=== PATIENT | male | born 1950 | race African-American/Black ===

== ENCOUNTER 2019-04-17 17:18 | Emergency (ER) | payer OTHER ==
[2019-04-17 17:34] LABS: Glucose,Whole Blood 124 mg/dL (75-99)
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
[2019-04-17 18:27] LABS: HCT 41.6 % (39.0-53.0); HGB 13.9 gm/dL (13.0-17.5); MCH 32.5 pg (25.0-35.0); MCHC 33.5 g/dL (31.0-37.0); MCV 97.2 fL (80.0-100.0); Mean Platelet Volume 9.3; Platelet Count 149 k/uL (150-450); RBC 4.29 m/uL (4.30-5.90); RDW 12.1 % (11.5-15.5); WBC 5.9 k/uL (3.8-10.6)
[2019-04-17 18:35] LABS: Eosinophils # (M) 0.06 k/uL (0-0.7); Lymphocytes # (M) 2.12 k/uL (1.0-4.8); Monocytes # (M) 0.41 k/uL (0-1.0); Neutrophils % (M) 56 %; Nucleated Red Blood Cells 0 /100 WBC (0-0); Total Cells Counted 100
[2019-04-17] MEDS ORDERED: ACETAMINOPHEN TAB 500 MG TAB PO STA (18:36)
[2019-04-17 18:39] LABS: Albumin 5.2 g/dL (3.5-5.0); Calcium 9.8 mg/dL (8.4-10.2); Total Bilirubin 1.6 mg/dL (0.2-1.3); Total Protein 8.6 g/dL (6.3-8.2)
[2019-04-17 18:40] LABS: Potassium 5.6 mmol/L (3.5-5.1)
[2019-04-17 18:56] LABS: Appearance,Urine Clear (Clear); Bilirubin,Urine Negative (Negative); Blood,Urine Negative (Negative); Color,Urine Light Yellow; Glucose,Urine (UA) Negative (Negative); Ketones,Urine Negative (Negative); Leukocyte Esterase,Urine Negative (Negative); Nitrite,Urine Negative (Negative); PH, Urine 7.5 (5.0-8.0); Protein,Urine Negative (Negative); Specific Gravity,Urine 1.011 (1.001-1.035); Urobilinogen,Urine <2.0 mg/dL (<2.0)
--- NOTE | 2019-04-17 18:56 | XR ---
EXAMINATION TYPE: XR knee complete LT DATE OF EXAM: 04/17/2019 COMPARISON: NONE HISTORY: Knee injury. Pain TECHNIQUE: 3 views FINDINGS: I see no fracture nor dislocation. Joint spaces are normal. There is no sign of knee joint effusion. IMPRESSION: Negative left knee exam. No fracture.
[2019-04-17 19:15] LABS: Amphetamine Screen,Urine Not Detected (NotDetected); Benzodiazepines Screen,Urine Not Detected (NotDetected); Cocaine Screen,Urine Not Detected (NotDetected); Methadone Screen, Urine Not Detected (NotDetected); Opiate Screen,Urine Not Detected (NotDetected); Phencyclidine Screen,Urine Not Detected (NotDetected); Tricyclic Antidepressant,Urine Not Detected (NotDetected); Urn Cannabinoid Scrn Not Detected (NotDetected)
[2019-04-17 19:16] LABS: Barbiturate Screen,Urine Not Detected (NotDetected); Oxycodone Screen, Urine Not Detected (NotDetected)
[2019-04-17 19:45] VITALS: BP 169/97; PULSE 57; RESP 16; TEMP 98.8
== END 2019-04-17 19:30 | disposition home or self-care (01) ==
LOC: EC 17:18
DX: S01.81XA Laceration without foreign body of other part of head, initial encounter (principal); S80.212A Abrasion, left knee, initial encounter; M54.5 Low back pain; R00.1 Bradycardia, unspecified; E87.5 Hyperkalemia; V33.5XXA Driver of three-wheeled motor vehicle injured in collision with car, pick-up truck or van in traffic accident, initial encounter; Y93.89 Activity, other specified; Y92.410 Unspecified street and highway as the place of occurrence of the external cause
CPT/HCPCS: 36415; 70450; 71045; 72125; 72131; 72170; 80053; 80306; 81003; 85025; 93005; 99285

== ENCOUNTER 2021-08-09 10:41 | Observation (INO) | payer OTHER, MEDICARE ==
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
[2021-08-09 12:28] LABS: Basophils # (A) 0.1 k/uL (0-0.2); Basophils % (A) 1 %; Eosinophils # (A) 0.2 k/uL (0-0.7); Eosinophils % (A) 3 %; HCT 44.7 % (39.0-53.0); HGB 13.9 gm/dL (13.0-17.5); Lymphocytes # (A) 1.6 k/uL (1.0-4.8); Lymphocytes % (A) 26 %; MCH 31.5 pg (25.0-35.0); MCV 101.6 fL (80.0-100.0); Monocytes # (A) 0.4 k/uL (0-1.0); Monocytes % (A) 6 %; Neutrophils # (A) 3.8 k/uL (1.3-7.7); Neutrophils % (A) 60 %; Platelet Count 231 k/uL (150-450); RDW 12.2 % (11.5-15.5); WBC 6.3 k/uL (3.8-10.6)
--- NOTE | 2021-08-09 12:42 | XR ---
EXAMINATION TYPE: XR chest 2V DATE OF EXAM: 08/09/2021 COMPARISON: X-ray dated 04/17/2019 HISTORY: Chest pain TECHNIQUE: Frontal and lateral views of the chest are obtained. FINDINGS: Slightly congested pulmonary vasculature with prominent interstitial lung markings, likely related to incomplete lung expansion. Grossly unremarkable lungs otherwise. No sizable pleural effusion or definite pneumothorax. No cardio megaly. Degenerative changes of thoracic spine and acromioclavicular joints. IMPRESSION: As above.
[2021-08-09 12:44] LABS: Albumin 4.5 g/dL (3.5-5.0); Calcium 9.7 mg/dL (8.4-10.2); Potassium 3.3 mmol/L (3.5-5.1); Total Bilirubin 0.7 mg/dL (0.2-1.3); Total Protein 7.6 g/dL (6.3-8.2)
[2021-08-09 12:50] LABS: Partial Thromboplastin Time 24.8 sec (22.0-30.0); Prothrombin Time 10.6 sec (9.0-12.0)
[2021-08-09] MEDS ORDERED: POTASSIUM CHLORIDE ER 20 MEQ TAB.ER PO STA (14:16)
[2021-08-09] MEDS ORDERED: SODIUM CHLORIDE 0.9% 1,000 ML IV SCH (15:00)
[2021-08-09] MEDS ORDERED: Acetaminophen-Codeine 300-30mg TAB PO PRN (15:22)
[2021-08-09] MEDS ORDERED: NON FORMULARY DRUG (Naloxone Hcl [Narcan] 4 MG Each) NASAL PRN (15:22)
[2021-08-09] MEDS ORDERED: GABAPENTIN 300 MG CAP PO SCH (16:00)
[2021-08-09] MEDS ORDERED: methocarbamoL 750 MG TAB PO SCH (16:00)
[2021-08-09] MEDS ORDERED: NALOXONE 0.4 MG/ML 1 ML VIAL IV PRN (16:09)
--- NOTE | 2021-08-09 16:12 | P.HPIM ---
History of Present Illness H&P Date: 08/09/21 Chief Complaint: Bradycardia History of present illness: Patient is a 71-year-old male with past medical history significant for chronic pain syndrome, hypertension and bipolar disorder who presents from his primary care office due to abnormal EKG which showed sinus bradycardia. Patient is awake alert oriented 3 he sleepy but not confused. Patient states he was at Dr. Hirsch's office at [facility] for a routine checkup. Patient states he feels w ell. He denies any symptoms including headache, shortness of breath, cough, chest pain, lightheadedness, dizziness, abdominal pain, nausea, vomiting, and diarrhea. Patient denies use of beta blockers, calcium channel blockers, and other rate controlling medication. Patient denies cardiac history but according to his medication list has history of hypertension and hyperlipidemia. Patient on multiple medication for pain control including Neurontin, muscle relaxant Robaxin, ibuprofen and Tylenol 3. Patient denies any history of coronary disease or stroke Review of systems: All 14 review of systems evaluated and all negative except for above. Physical examination: General: non toxic, no distress, appears at stated age, sleepy Derm: warm, dry Head: atraumatic, normocephalic, symmetric Eyes: EOMI, no lid lag, anicteric sclera Mouth: no lip lesion, mucus membranes moist Cardiovascular: S1S2 reg, no murmur, positive posterior tibial pulse bilateral, Lungs: CTA bilateral, no rhonchi, no rales , no accessory muscle use Abdominal: soft, nontender to palpation, no guarding, no appreciable organomegaly Ext: no gross muscle atrophy, no edema, no contractures Neuro: CN II-XI grossly intact, no focal neuro deficits Psych: Alert, oriented, appropriate affect Assessment and plan: #Sinus bradycardia -Patient is hemodynamically stable. Admit to telemetry -Unclear etiology, could be secondary to sciatic versus pain medications -Check TSH -Check 2-D echo and consult cardiology #Chronic pain syndrome -Patient sleepy will hold Tylenol No. 3 muscle relaxant and decreased Neurontin 200 mg twice daily #Bipolar disorder -Check lithium level -Resume home medications -Consult psychiatry to manage psych medication as possible cause of his increas ed sleepiness versus bradycardia #BPH -Resume Flomax #Hypertension -Resume home medications #DVT prophylaxis with Lovenox Past Medical History Past Medical History: No Reported History History of Any Multi-Drug Resistant Organisms: None Reported Past Surgical History: No Surgical Hx Reported Past Psychological History: No Psychological Hx Reported Smoking Status: Current every day smoker Past Alcohol Use History: None Reported Past Drug Use History: None Reported Medications and Allergies Home Medications Medication Instructions Recorded Confirmed Type ARIPiprazole [Abilify] 10 mg PO DAILY 08/09/21 08/09/21 History Acetaminophen-Codeine 300-30mg 1 tab PO TID PRN 08/09/21 08/09/21 History [Tylenol w/codeine #3] Aspirin EC [Ecotrin Low Dose] 81 mg PO DAILY 08/09/21 08/09/21 History Atorvastatin [Lipitor] 10 mg PO HS 08/09/21 08/09/21 History Benztropine Mesylate [Cogentin] 1 mg PO HS 08/09/21 08/09/21 History Cetirizine HCl [Zyrtec] 10 mg PO DAILY 08/09/21 08/09/21 History Cholecalciferol [Vitamin D3 (25 50 mcg PO DAILY 08/09/21 08/09/21 History Mcg = 1000 Iu)] Divalproex ER [Depakote ER] 500 mg PO HS 08/09/21 08/09/21 History Fluticasone Nasal [place] [Flonase 1 spray EA NOSTRIL BID 08/09/21 08/09/21 History Nasal [place]] Gabapentin [Neurontin] 300 mg PO TID 08/09/21 08/09/21 History Ibuprofen [Motrin] 800 mg PO TID PRN 08/09/21 08/09/21 History [place] Carbonate 300 mg PO DAILY 08/09/21 08/09/21 History Multivitamins, Thera [Multivitamin 1 tab PO DAILY 08/09/21 08/09/21 History (formulary)] Naloxone HCl [Narcan] 4 mg NASAL DIRECTED PRN 08/09/21 08/09/21 History Omeprazole [PriLOSEC] 20 mg PO DAILY 08/09/21 08/09/21 History Tamsulosin HCl [Flomax] 0.8 mg PO DAILY 08/09/21 08/09/21 History Triamterene-Hctz 37.5-25Mg 1 tab PO DAILY 08/09/21 08/09/21 History [Maxzide 37.5-25] hydrALAZINE HCL [Apresoline] 50 mg PO TID 08/09/21 08/09/21 History methocarbamoL [Methocarbamol] 750 mg PO TID 08/09/21 08/09/21 History traZODone HCL [Desyrel] 50 mg PO HS 08/09/21 08/09/21 History Allergies Allergy/AdvReac Type Severity Reaction Status Date / Time chocolate flavor Allergy Unknown Verified 08/09/21 13:28 bupropion [From Wellbutrin] AdvReac Seizure Verified 08/09/21 13:28 Physical Exam Vitals: Vital Signs Temp Pulse Resp BP Pulse Ox 08/09/21 14:32 43 L 16 170/81 97 08/09/21 14:12 37 L 18 176/98 95 08/09/21 12:57 40 L 16 162/87 96 08/09/21 10:48 97.4 F L 42 L 16 157/84 94 L Intake and Output 08/09/21 08/09/21 08/09/21 06:59 14:59 22:59 Other: Weight 79.379 kg Results CBC & Chem 7: 08/09/21 12:14 08/09/21 12:14 Labs: Abnormal Lab Results - Last 24 Hours (Table) 08/09/21 08/09/21 Range/Units 12:14 12:14 MCV 101.6 H (80.0-100.0) fL Potassium 3.3 L (3.5-5.1) mmol/L Carbon Dioxide 32 H (22-30) mmol/L
--- NOTE | 2021-08-09 16:51 | CT ---
EXAMINATION TYPE: CT brain wo con DATE OF EXAM: 08/09/2021 HISTORY: Lethargy CT DLP: 1232.4 mGycm. Automated Exposure Control for Dose Reduction was Utilized. TECHNIQUE: CT scan of the head is performed without contrast. COMPARISON: CT brain April 17, 2019. FINDINGS: There is no acute intracranial hemorrhage or midline shift identified. There is mild diff use ventricular and sulcal prominence consistent with diffuse age-related cerebral atrophy. Olson-whit e matter differentiation is maintained. Small mucous retention cyst or polyp in the inferior left max illary sinus. Mild mucosal thickening in inferior right maxillary sinus. Small degree of cerumen in t he deep left external auditory canal current study. IMPRESSION: No acute intracranial hemorrhage or midline shift. No significant change from prior.
[2021-08-09] MEDS: hydrALAZINE HCL 50 MG TAB PO SCH ×2 (17:14→20:51)
[2021-08-09] MEDS: GABAPENTIN 100 MG CAP PO SCH (20:51)
[2021-08-09] MEDS: FLUTICASONE 50MCG/SPRAY NASAL 16GM EA NOSTRIL SCH (20:51)
[2021-08-09] MEDS ORDERED: ATORVASTATIN 10 MG TAB PO SCH (21:00)
[2021-08-09] MEDS ORDERED: BENZTROPINE MESYLATE 1 MG TAB PO SCH (21:00)
[2021-08-09] MEDS ORDERED: traZODone HCL 50 MG TAB PO SCH (21:00)
[2021-08-09] MEDS ORDERED: DIVALPROEX ER 500 MG TAB.ER.24H PO SCH (21:00)
[2021-08-10] MEDS ORDERED: PANTOPRAZOLE 40 MG TABLET PO SCH (07:30)
[2021-08-10] MEDS ORDERED: TRIAMTERENE-HCTZ 37.5-25MG 1 EACH TAB PO SCH (09:00)
[2021-08-10] MEDS ORDERED: CHOLECALCIFEROL 25 MCG (1000 IU) TABLET PO SCH (09:00)
[2021-08-10] MEDS ORDERED: LORATADINE 10 MG TAB PO SCH (09:00)
[2021-08-10] MEDS ORDERED: LITHIUM CARBONATE 300 MG CAP PO SCH (09:00)
[2021-08-10] MEDS ORDERED: ENOXAPARIN 40 MG/0.4 ML SYRINGE SQ SCH (09:00)
[2021-08-10] MEDS ORDERED: ARIPiprazole 10 MG TAB PO SCH (09:00)
[2021-08-10] MEDS ORDERED: TAMSULOSIN 0.4 MG CAP.ER.24H PO SCH (09:00)
[2021-08-10] MEDS ORDERED: MULTIVITAMINS, THERA 1 EACH TAB PO SCH (09:00)
[2021-08-10] MEDS ORDERED: ASPIRIN 81 MG PO SCH (09:00)
[2021-08-10] MEDS: hydrALAZINE HCL 50 MG TAB PO SCH (09:13)
[2021-08-10] MEDS: FLUTICASONE 50MCG/SPRAY NASAL 16GM EA NOSTRIL SCH (09:14)
[2021-08-10 09:15] LABS: Albumin 4.1 g/dL (3.8-4.9); Albumin/Globulin Ratio 1.78 (1.60-3.17); Anion Gap 11.9 mmol/L (10.00-18.00); BUN/Creat Ratio 16.5 Ratio (12.00-20.00); Blood Urea Nitrogen 16.5 mg/dL (9.0-27.0); Calcium 9.3 mg/dL (8.7-10.3); Carbon Dioxide 24.1 mmol/L (20.0-27.5); Globulin 2.3 g/dL (1.6-3.3); Non-African American GFR(CKD) 75.9 (60.0-200.0); Potassium 3.5 mmol/L (3.5-5.5); Total Bilirubin 0.4 mg/dL (0.30-1.20); Total Protein 6.4 g/dL (6.2-8.2)
[2021-08-10] MEDS: GABAPENTIN 100 MG CAP PO SCH (09:23)
[2021-08-10 12:26] LABS: Basophils # (A) 0.05 X 10*3/uL (0.00-0.10); Basophils % (A) 0.7 %; Eosinophils # (A) 0.19 X 10*3/uL (0.04-0.35); Eosinophils % (A) 2.7 %; Immature Grans, Automated 0.4 %; Lymphocytes # (A) 1.22 X 10*3/uL (0.90-5.00); Lymphocytes % (A) 17.6 %; MCH 31.7 pg (27.0-32.0); MCHC 32.6 g/dL (32.0-37.0); MCV 97.5 fL (80.0-97.0); Mean Platelet Volume 11.1 fL (9.5-12.2); Monocytes # (A) 0.57 X 10*3/uL (0.20-1.00); Monocytes % (A) 8.2 %; NRBC Per 100 WBC 0 /100 WBCS (0.0-0.0); Neutrophils # (A) 4.88 X 10*3/uL (1.80-7.70); Neutrophils % (A) 70.4 %; Platelet Count 216 X 10*3/uL (140-440); RBC 4.41 X 10*6/uL (4.40-5.60); RDW 12.9 % (11.5-14.5); WBC 6.94 X 10*3/uL (4.50-10.00)
--- NOTE | 2021-08-10 12:36 | CA ---
Transthoracic Echo Report Name: Hu Slater Age: 71 Gender: M : 1950 Exam Date: 08/10/2021 08:55 Exam Location: [facility] Ht (in): 66 Wt (lb): 175 Ordering Physician: Zeeshan Brar MD Attending/Referring Phys: [id number], Zonia R Developer Nicolle Haq, RD Procedure CPT: Indications: Bradycardia Cardiac Hx: HTN Technical Quality: Good Contrast 1: Total Dose (mL): Contrast 2: Total Dose (mL): MEASUREMENTS (Male / Female) Normal Values 2D ECHO LV Diastolic Diameter PLAX 4.6 cm 4.2 - 5.9 / 3.9 - 5.3 cm LV Systolic Diameter PLAX 3.1 cm IVS Diastolic Thickness 1.2 cm 0.6 - 1.0 / 0.6 - 0.9 cm LVPW Diastolic Thickness 1.1 cm 0.6 - 1.0 / 0.6 - 0.9 cm LV Relative Wall Thickness 0.5 RV Internal Dim ED PLAX 3.1 cm LA Systolic Diameter LX 3.4 cm 3.0 - 4.0 / 2.7 - 3.8 cm LA Volume 87.9 cm??? 18 - 58 / 22 - 52 cm??? M-MODE Aortic Root Diameter MM 2.9 cm AV Cusp Separation MM 2.3 cm DOPPLER AV Peak Velocity 156.0 cm/s AV Peak Gradient 9.7 mmHg MV Area PHT 2.6 cm??? Mitral E Point Velocity 74.5 cm/s Mitral A Point Velocity 86.3 cm/s Mitral E to A Ratio 0.9 MV Deceleration Time 291.1 ms MV E' Velocity 6.5 cm/s Mitral E to MV E' Ratio 11.5 TR Peak Velocity 227.3 cm/s TR Peak Gradient 20.7 mmHg Right Ventricular Systolic Press 24.8 mmHg FINDINGS Left Ventricle Left ventricular ejection fraction is estimated at 55-60 %. Left ventricular cavity size normal. Borderline left ventricular hypertrophy. Right Ventricle Normal right ventricular size and function. Right ventricular systolic pressure within normal limits. Right Atrium Normal right atrial size. Left Atrium Severely increased left atrial volume. Mildly increased left atrial area. No evidence for an atrial septal defect. Mitral Valve Structurally normal mitral valve. No mitral stenosis, regurgitation or prolapse. Aortic Valve Trileaflet aortic valve. No aortic valve stenosis or regurgitation. Tricuspid Valve Mild tricuspid regurgitation. Pulmonic Valve Structurally normal pulmonic valve. Pericardium Normal pericardium. No pericardial effusion. Aorta Normal size aortic root and proximal ascending aorta. CONCLUSIONS Normal LV size and systolic function. No significant abnormality on the Doppler exam. No pericardial effusion Previewed by: Dr. Adalgisa Hernandez MD (Electronically Signed) Final Date: 10 August 2021 12:35
--- NOTE | 2021-08-10 13:50 | P.CN ---
Psychiatric Consult - . Consult date: 08/10/21 Consult:: 08/10/21 13:14 IDENTIFYING DATA: This patient is a 71-year-old -Indian male who is currently single, has 1 daughter and lives in apartment with a roommate. REASON FOR REFERRAL: Psychiatry was consulted for psychiatric medication management with concern for bradycardia and sleepiness HISTORY OF PRESENT ILLNESS: The patient presented to the hospital yesterday and was brought in from his PCPs office to 10 abnormal EKG. Patient apparently was lethargic and sleepy and also having the heart rhythm changes. Patient apparently was a poor historian according to ER report. Patient's potassium level was 3.3 and lithium level was 0.5. Patient was seen today sitting on the chair beside his bed and agreeable to speak to commercial real estate underwriter. Patient was fairly calm and cooperative and pleasant during conversation. He spoke of getting "checked out" by his PCP and states that he was referred to the hospital to be evaluated for the abnormal EKG. He claims that he was feeling tired initially however is now doing better in terms of his mood and energy level. He claims that he slept well last night. He is denying any lethargy today. He claimed that his mood is been "stable" and denying any depression at this time. Denies any anxiety. He denies any changes in his appetite. He claims that he does not have any PTSD symptoms including hypervigilance flashbacks or nightmares. He does claim that he is a however did not have any combat history. He was alert and oriented 3 . At this time patient denies any suicidal or homical ideations, intent or plan. Patient denies any auditory, visual hallucinations and denies an y paranoia or delusions. Patients admits to using cigarettes only no other recreational drugs. PAST PSYCHIATRIC HISTORY: Patient has a a history of bipolar disorder. Patient is currently on Abilify 10 mg daily, Depakote 500 mg daily at bedtime lithium 300 mg daily Cogentin 1 mg daily at bedtime and trazodone 50 mg daily at bedtime. He claims that he was once admitted to the [facility] in [place] for psychiatric concerns several years ago. He claims that he currently follows up with the nurse practitioner Sarah from the [place] at the [facility] through tele- psych. Patient denies any history of suicide attempts in the past. PAST MEDICAL HISTORY: As per medicine H&P. ALLERGIES: as per EMR. CHEMICAL DEPENDENCY HISTORY: as per HPI. FAMILY PSYCHIATRIC/SUBSTANCE USE HISTORY: denies SOCIAL HISTORY: Patient was born and raised in [place] and moved to [place] when he was 4 years old. He claims that he grew up mainly in [place]. He claims that he served in the [employer] from [id number]. Noncombat . He claims that he completed high school. Denies any legal history. He has one daughter, single he lives with a roommate in an apartment. MENTAL STATUS EXAM: General Appearance: Patient appears to be pleasant, stated age is alert, and cooperative. Patient appears to have fair hygiene and grooming wearing hospital gown with fair eye contact. Behavior: Patient is calmly lying in bed without any agitated behavior. Pleasant Speech: Patient's speech is fluent and nonpressured. Mood/Affect: Patient reports their mood is "good", affect is congruent Suicidality/Homicidality: Patient denies having any suicidal or homicidal ideation intent or plan. Perceptions: Patient denies any visual hallucinations and denies any auditory hallucinations Though content/process: There is no evidence of any delusional thought content and thought process is linear and goal-directed. Memory and concentration: AOX3, grossly intact for the purposes of this session. Can spell "WORLD" backwards Judgment and insight: Fair IMPRESSIONS: Medication adverse effect, likely lithium History of bipolar disorder PLAN: -At this time patient DOES NOT meet criteria for inpatient psychiatric admission. -Would recommend the following medication changes/additions: Can continue with current psychiatric medications except for decreasing lithium to 150 mg daily for mood stabilization as this most likely played a role in sedation or ecg changes. Patient was encouraged to follow up with his [facility] psych provider within 1 week for follow up. -Communicated plan to patient's nurse -Psychiatry will sign off at this time -Please contact with any questions.
--- NOTE | 2021-08-10 14:22 | CONS ---
CONSULTATION Hu Slater is a 71-year-old -F[place]ian gentleman who has most of his [facility] in the [facility]. He was seen at [facility], found to have a heart rate about 40 and sinus, and he was sent here. No symptoms of chest pain, shortness of breath or palpitations. Patient seems to be on multiple medications, and he may have a bipolar disorder as well. However, he is on lithium also. At the time of my evaluation he is comfortable resting. He has no chest pain, shortness of breath or palpitations. I had him ambulate in the hallway and his heart rate went up to 64 beats per minute. His thyroid functions are normal. He has asymptomatic bradycardia with sick sinus syndrome, but no symptoms and therefore no intervention at this time. Past medical history is unremarkable. He may have some bipolar disorder. He also has hyperlipidemia and may have mild underlying depression. He has hypertension as well. His past medical history is remarkable for possible bipolar disorder, hypertension, hyperlipidemia. No documented evidence of CAD. On examination, blood pressure is 138/72, pulse rate is 60 per minute. HEENT unremarkable. Fundus was not examined by me. Neck is supple. No JVD. I do not hear a carotid bruit. Heart exam reveals S1, S2 with a short systolic murmur at left sternal border. Lungs are clear. Abdomen is soft, nontender. Lower extremities reveal normal pulses. No edema. Central nervous system is normal. EKG revealed sinus bradycardia. No acute changes. IMPRESSION: 1. Asymptomatic bradycardia. 2. Hypertension. 3. Probable underlying bipolar disorder. 4. History of hyperlipidemia. RECOMMENDATIONS: I would recommend that he should not receive any rate-lowering agents. His thyroid function is normal. He can be discharged, and if he has any symptoms of dizziness or lightheadedness, he should contact his physician or Cardiology. He can be discharged today. Thank you very much for the consult. MMODL / IJN: [id number] /
--- NOTE | 2021-08-10 14:32 | P.DS ---
Providers Date of admission: 08/09/21 14:26 Expected date of discharge: 08/10/21 Attending physician: Olaf Mina MD Consults: 08/09/21 14:56 Consult Physician Stat Consulting Provider: Leeroy Stringer Consult Reason/Comments: asymptomatic bradycardia Do you want consulting provider notified?: Yes 08/09/21 15:59 Consult Physician Routine Consulting Provider: Brian Britton Consult Reason/Comments: psych medication management ( patient sleepy and bradycardiac) Do you want consulting provider notified?: Already Contacted Primary care physician: [facility] Hospital Course: History of Present Illness H&P Date: 08/09/21 Chief Complaint: Bradycardia History of present illness: Patient is a 71-year-old male with past medical history significant for chronic pain syndrome, hypertension and bipolar disorder who presents from his primary care office due to abnormal EKG which showed sinus bradycardia. Patient is awake alert oriented 3 he sleepy but not confused. Patient states he was at Dr. Hirsch's office at [facility] for a routine checkup. Patient states he feels well. He denies any symptoms including headache, shortness of breath, cough, chest pain, lightheadedness, dizziness, abdominal pain, nausea, vomiting, and diarrhea. Patient denies use of beta blockers, calcium channel blockers, and other rate controlling medication. Patient denies cardiac history but according to his medication list has history of hypertension and hyperlipidemia. Patient on multiple medication for pain control including Neurontin, muscle relaxant Robaxin, ibuprofen and Tylenol 3. Patient denies any history of coronary disease or stroke Hospital course: #Sinus bradycardia -Patient is hemodynamically stable. -Unclear etiology, per psychiatry could be secondary to lithium -Normal TSH -Echo showed normal systolic function. -Psychiatry recommended to decrease lithium to have dose from 300 to 150 mg daily -Cardiology cleared the patient for discharge #Acute toxic encephalopathy -Resolved -Patient was sleepy yesterday most likely secondary to polypharmacy -He is alert and oriented 4 today #Chronic pain syndrome -Resume all medication on discharge -Change muscle relaxant methocarbamol to 3 times as needed instead of around the clock #Bipolar disorder -Psychiatry recommended to decrease lithium dose 150 mg. U prescription was given on discharge -Resume home medications -Psychiatry recommended the patient to follow-up with his psychiatrist at the [facility] #BPH -Resume Flomax #Hypertension -Resume home medications Physical examination on discharge: General: non toxic, no distress, appears at stated age Derm: warm, dry Head: atraumatic, normocephalic, symmetric Eyes: EOMI, no lid lag, anicteric sclera Mouth: no lip lesion, mucus membranes moist Cardiovascular: S1S2 reg, no murmur, positive posterior tibial pulse bilateral, Lungs: CTA bilateral, no rhonchi, no rales , no accessory muscle use Abdominal: soft, nontender to palpation, no guarding, no appreciable organomegaly Ext: no gross muscle atrophy, no edema, no contractures Neuro: CN II-XI grossly intact, no focal neuro deficits Psych: Alert, oriented, appropriate affect Patient Condition at Discharge: Stable Plan - Discharge Summary Discharge Rx Participant: No New Discharge Prescriptions: [place] Carbonate 150 mg PO DAILY 30 Days #30 cap Continue traZODone HCL [Desyrel] 50 mg PO HS Multivitamins, Thera [Multivitamin (formulary)] 1 tab PO DAILY Aspirin EC [Ecotrin Low Dose] 81 mg PO DAILY Benztropine Mesylate [Cogentin] 1 mg PO HS Divalproex ER [Depakote ER] 500 mg PO HS Triamterene-Hctz 37.5-25Mg [Maxzide 37.5-25] 1 tab PO DAILY Cetirizine HCl [Zyrtec] 10 mg PO DAILY Cholecalciferol [Vitamin D3 (25 Mcg = 1000 Iu)] 50 mcg PO DAILY Tamsulosin HCl [Flomax] 0.8 mg PO DAILY Omeprazole [PriLOSEC] 20 mg PO DAILY Ibuprofen [Motrin] 800 mg PO TID PRN PRN Reason: PAIN OR INFLAMMATION Gabapentin [Neurontin] 300 mg PO TID ARIPiprazole [Abilify] 10 mg PO DAILY Naloxone HCl [Narcan] 4 mg NASAL DIRECTED PRN PRN Reason: OVERDOSE Acetaminophen-Codeine 300-30mg [Tylenol w/codeine #3] 1 tab PO TID PRN PRN Reason: Pain hydrALAZINE HCL [Apresoline] 50 mg PO TID Atorvastatin [Lipitor] 10 mg PO HS Fluticasone Nasal [place] [Flonase Nasal [place]] 1 spray EA NOSTRIL BID Changed methocarbamoL [Methocarbamol] 750 mg PO TID PRN #0 PRN Reason: Spasms Discontinued [place] Carbonate 300 mg PO DAILY Discharge Medication List ARIPiprazole [Abilify] 10 mg PO DAILY 08/09/21 [History] Acetaminophen-Codeine 300-30mg [Tylenol w/codeine #3] 1 tab PO TID PRN 08/09/21 [History] Aspirin EC [Ecotrin Low Dose] 81 mg PO DAILY 08/09/21 [History] Atorvastatin [Lipitor] 10 mg PO HS 08/09/21 [History] Benztropine Mesylate [Cogentin] 1 mg PO HS 08/09/21 [History] Cetirizine HCl [Zyrtec] 10 mg PO DAILY 08/09/21 [History] Cholecalciferol [Vitamin D3 (25 Mcg = 1000 Iu)] 50 mcg PO DAILY 08/09/21 [History] Divalproex ER [Depakote ER] 500 mg PO HS 08/09/21 [History] Fluticasone Nasal [place] [Flonase Nasal [place]] 1 spray EA NOSTRIL BID 08/09/21 [History] Gabapentin [Neurontin] 300 mg PO TID 08/09/21 [History] Ibuprofen [Motrin] 800 mg PO TID PRN 08/09/21 [History] Multivitamins, Thera [Multivitamin (formulary)] 1 tab PO DAILY 08/09/21 [History] Naloxone HCl [Narcan] 4 mg NASAL DIRECTED PRN 08/09/21 [History] Omeprazole [PriLOSEC] 20 mg PO DAILY 08/09/21 [History] Tamsulosin HCl [Flomax] 0.8 mg PO DAILY 08/09/21 [History] Triamterene-Hctz 37.5-25Mg [Maxzide 37.5-25] 1 tab PO DAILY 08/09/21 [History] hydrALAZINE HCL [Apresoline] 50 mg PO TID 08/09/21 [History] traZODone HCL [Desyrel] 50 mg PO HS 08/09/21 [History] [place] Carbonate 150 mg PO DAILY 30 Days #30 cap 08/10/21 [Rx] methocarbamoL [Methocarbamol] 750 mg PO TID PRN #0 08/10/21 [Rx] Follow up Appointment(s)/Referral(s): None,Stated [REFERRING] - 1-2 days Discharge Disposition: HOME SELF-CARE
[2021-08-10 15:09] VITALS: BP 140/76; PULSE 58; RESP 18; TEMP 98.2
[2021-08-11] MEDS ORDERED: LITHIUM CARBONATE 150 MG CAP PO SCH (09:00)
== END 2021-08-10 16:00 | disposition home or self-care (01) ==
LOC: EC 10:41 → 3SCARD 14:26 → 6NMEDSUR 16:26
PROVIDERS: ADMIT Internal Medicine; ATTEND Internal Medicine
DX: R00.1 Bradycardia, unspecified (principal); G92.9 Unspecified toxic encephalopathy; T50.905A Adverse effect of unspecified drugs, medicaments and biological substances, initial encounter; F31.9 Bipolar disorder, unspecified; G89.4 Chronic pain syndrome; I10 Essential (primary) hypertension; E78.5 Hyperlipidemia, unspecified; I07.1 Rheumatic tricuspid insufficiency; N40.0 Benign prostatic hyperplasia without lower urinary tract symptoms; F17.200 Nicotine dependence, unspecified, uncomplicated; Z79.82 Long term (current) use of aspirin; Z79.899 Other long term (current) drug therapy; Z88.8 Allergy status to other drugs, medicaments and biological substances; Z91.018 Allergy to other foods
CPT/HCPCS: 96372; 99285; 36415; 93005; 93306; 80053 ×2; 84443; 80178; 83735; 84484; 85025 ×2; 85610; 85730; 71046; 70450; G0378 ×3; J1650

== ENCOUNTER 2023-10-01 19:42 | Emergency (ER) | payer OTHER, MEDICARE ==
[2023-10-01] MEDS ORDERED: HYDROmorphone 0.5 MG/0.5 ML SYRINGE ONE (20:21)
[2023-10-01] MEDS ORDERED: ONDANSETRON 4 MG/2 ML VIAL ONE (20:21)
--- NOTE | 2023-11-03 10:06 | CT ---
EXAM: CT abdomen pelvis without contrast. DATE OF EXAM: 10/01/23 INDICATION: Patient age:PINKY MAHARAJ : 1950 Reason for study: SEVERE ABD PAIN X 2 WEEKS, DENIES N,V,D. CTDI-8.8, DLP-548.5 COMPARISON: None, please note PACS downtime occurred during the radiologist interpretation of these i mages with limited priors/reports.. TECHNIQUE: CT abdomen pelvis with axial imaging and sagittal and coronal reformats without IV or oral contrast. Lack of IV or oral contrast limits evaluation of solid and hollow organ viscera.. One or more CT dose reduction strategies were utilized during this examination. Total DLP administered was 548.5mGycm. FINDINGS: LOWER CHEST: The heart is mildly enlarged for size. ABDOMEN LIVER: The liver is enlarged for size. There is nodular contour to liver. GALLBLADDER AND BILE DUCTS: The gallbladder is surgically absent. PANCREAS: Unremarkable. SPLEEN: Unremarkable. ADRENAL GLANDS: Unremarkable. KIDNEYS AND URETERS: No evidence of hydronephrosis or renal calculus. The ureters are poorly visualiz ed due to lack of IV and oral contrast.. PELVIS BLADDER: Unremarkable REPRODUCTIVE: Prostate is enlarged in size measuring 5.3 cm in transverse dimension. ABDOMEN & PELVIS STOMACH AND BOWEL: Stomach and duodenum are unremarkable. No evidence of bowel obstruction. PERITONEUM: No evidence of pneumoperitoneum. There is trace free fluid scattered throughout the abdom en. VASCULATURE: Mild atherosclerotic calcifications are present throughout the abdominal aorta and its b ranches. MUSCULOSKELETAL: Mild disc degeneration changes are present throughout the thoracolumbar spine. LYMPH NODES: No gross evidence for lymphadenopathy. SOFT TISSUE/ABDOMINAL WALL: Fat and fluid containing hiatal hernia. IMPRESSION: Limited evaluation without IV or oral contrast. 1. No evidence for obstructive uropathy. No renal sinus calculi visualized. The ureters are poorly v isualized. 2. Colonic diverticulosis. 3. Prostatomegaly correlate with serum PSA. 4. Markedly Hepatomegaly with nodular contour correlate with serum markers. 5. Mild cardiomegaly.
== END 2023-10-01 22:06 | disposition home or self-care (01) ==
LOC: EC 19:42
DX: R16.0 Hepatomegaly, not elsewhere classified (principal)
CPT/HCPCS: 80053; 82150; 85610; 85730; 74176; 99284; J2405; J1170

== ENCOUNTER 2023-10-23 01:12 | Emergency (ER) | payer OTHER, MEDICARE ==
[2023-10-23 05:51] VITALS: BP 119/66; PULSE 56; RESP 16; TEMP 97.4
[2023-10-23] MEDS ORDERED: SODIUM CHLORIDE 0.9% 500 ML BAG ONE (06:45)
[2023-10-23] MEDS ORDERED: HYDROmorphone 0.5 MG/0.5 ML SYRINGE ONE (06:45)
[2023-10-23] MEDS ORDERED: HYDROmorphone 1 MG/ML 1 ML SYRINGE ONE (06:55)
[2023-10-23 08:48] LABS: ALT 539 U/L (4-49); AST 333 U/L (17-59); African American GFR (CKD) 68 (>60 ml/min/1.73 sqM); Albumin 4.5 g/dL (3.5-5.0); Alkaline Phosphatase 259 U/L (38-126); Anion Gap 11 mmol/L; Blood Urea Nitrogen 24 mg/dL (9-20); Calcium 9.8 mg/dL (8.4-10.2); Carbon Dioxide 26 mmol/L (22-30); Chloride 104 mmol/L (98-107); Glucose 108 mg/dL (74-99); Non-African American GFR(CKD) 59 (>60 ml/min/1.73 sqM); Potassium 3.9 mmol/L (3.5-5.1); Sodium 141 mmol/L (137-145); Total Bilirubin 1.2 mg/dL (0.2-1.3); Total Protein 7.8 g/dL (6.3-8.2)
[2023-10-23 09:12] LABS: INR 1.1 (<1.2); Partial Thromboplastin Time 29.1 sec (22.0-30.0); Prothrombin Time 12.1 sec (10.0-12.5)
[2023-10-23 09:31] LABS: Anisocytosis Slight; Basophils % (A) 1 %; Eosinophils # (A) 0.1 k/uL (0-0.7); Eosinophils % (A) 1 %; HCT 36.6 % (39.0-53.0); HGB 11.3 gm/dL (13.0-17.5); Hypochromasia Marked; Lymphocytes # (A) 0.9 k/uL (1.0-4.8); Lymphocytes % (A) 11 %; MCH 31.5 pg (25.0-35.0); MCHC 30.9 g/dL (31.0-37.0); MCV 102.2 fL (80.0-100.0); Macrocytosis Moderate; Mean Platelet Volume 8.3; Monocytes # (A) 0.4 k/uL (0-1.0); Monocytes % (A) 5 %; Neutrophils # (A) 6.7 k/uL (1.3-7.7); Neutrophils % (A) 83 %; Platelet Count 605 k/uL (150-450); RBC 3.58 m/uL (4.30-5.90); RDW 18.6 % (11.5-15.5); WBC 8.1 k/uL (3.8-10.6)
--- NOTE | 2023-12-18 06:21 | ED ---
Abdominal Pain HPI - General Chief Complaint: Abdominal Pain Time Seen by Provider: 10/23/23 05:55 Source: patient Mode of arrival: EMS Limitations: no limitations - History of Present Illness Initial Comments: This patient is a 73-year-old man, recently diagnosed with liver cancer who arrives by EMS to have evaluation of worsening of the cancer pain. Patient states the cancer was diagnosed last week. He has been having pain going back for a couple of weeks now but states it is worse tonight. He tried taking the prescribed medication at home but it did not provide much relief. Patient denies associated symptoms, no fever or chills. No vomiting, change in bowel movements or urination. MD Complaint: abdominal pain -: hour(s) Location: RUQ Radiation: none Migration to: no migration Severity: moderate Quality: aching Consistency: constant Improves With: nothing Worsens With: movement, other (Deep breath) Associated Symptoms: denies other symptoms - Related Data Home Medications Medication Instructions Recorded Confirmed ARIPiprazole [Abilify] 10 mg PO DAILY 08/09/21 08/09/21 Acetaminophen-Codeine 300-30mg 1 tab PO TID PRN 08/09/21 08/09/21 [Tylenol w/codeine #3] Aspirin EC [Ecotrin Low Dose] 81 mg PO DAILY 08/09/21 08/09/21 Atorvastatin [Lipitor] 10 mg PO HS 08/09/21 08/09/21 Benztropine Mesylate [Cogentin] 1 mg PO HS 08/09/21 08/09/21 Cetirizine HCl [Zyrtec] 10 mg PO DAILY 08/09/21 08/09/21 Cholecalciferol [Vitamin D3 (25 50 mcg PO DAILY 08/09/21 08/09/21 Mcg = 1000 Iu)] Divalproex ER [Depakote ER] 500 mg PO HS 08/09/21 08/09/21 Fluticasone Nasal [place] [Flonase 1 spray EA NOSTRIL BID 08/09/21 08/09/21 Nasal [place]] Gabapentin [Neurontin] 300 mg PO TID 08/09/21 08/09/21 Ibuprofen [Motrin] 800 mg PO TID PRN 08/09/21 08/09/21 Multivitamins, Thera [Multivitamin 1 tab PO DAILY 08/09/21 08/09/21 (formulary)] Naloxone HCl [Narcan] 4 mg NASAL DIRECTED PRN 08/09/21 08/09/21 Omeprazole [PriLOSEC] 20 mg PO DAILY 08/09/21 08/09/21 Tamsulosin HCl [Flomax] 0.8 mg PO DAILY 08/09/21 08/09/21 Triamterene-Hctz 37.5-25Mg 1 tab PO DAILY 08/09/21 08/09/21 [Maxzide 37.5-25] hydrALAZINE HCL [Apresoline] 50 mg PO TID 08/09/21 08/09/21 traZODone HCL [Desyrel] 50 mg PO HS 08/09/21 08/09/21 Previous Rx's Medication Instructions Recorded [place] Carbonate 150 mg PO DAILY 30 Days #30 cap 08/10/21 methocarbamoL 750 mg PO TID PRN #0 08/10/21 oxyCODONE HCL/ACETAMINOPHEN 1 tab PO Q8H 3 Days #15 tab 12/16/23 [oxyCODONE HCL/ACETAMINOPHEN 5-325] Allergies Allergy/AdvReac Type Severity Reaction Status Date / Time chocolate flavor Allergy Unknown Verified 12/16/23 05:22 bupropion [From Wellbutrin] AdvReac Seizure Verified 12/16/23 05:22 Review of Systems ROS Statement: Those systems with pertinent positive or pertinent negative responses have been documented in the HPI. ROS Other: All systems not noted in ROS Statement are negative. Constitutional: Denies: fever, chills, weakness Respiratory: Denies: cough, dyspnea Cardiovascular: Denies: chest pain, palpitations, edema Gastrointestinal: Reports: abdominal pain. Denies: vomiting, diarrhea, melena, hematochezia Genitourinary: Denies: dysuria, hematuria Musculoskeletal: Denies: back pain Skin: Denies: rash Neurological: Denies: headache, weakness Past Medical History Past Medical History: No Reported History Additional Past Medical History / Comment(s): Liver CA History of Any Multi-Drug Resistant Organisms: None Reported Past Surgical History: No Surgical Hx Reported Past Psychological History: No Psychological Hx Reported Smoking Status: Current every day smoker Past Alcohol Use History: None Reported Past Drug Use History: None Reported General Exam Limitations: no limitations General appearance: alert, in no apparent distress Head exam: Present: atraumatic, normocephalic Eye exam: Present: normal appearance Neck exam: Present: normal inspection Respiratory exam: Present: normal lung sounds bilaterally. Absent: respiratory distress, wheezes, rales, rhonchi, stridor, accessory muscle use Cardiovascular Exam: Present: regular rate, normal rhythm, normal heart sounds. Absent: systolic murmur, diastolic murmur, rubs, gallop GI/Abdominal exam: Present: soft, tenderness (Mild right upper quadrant tenderness), mass (Hepatomegaly). Absent: distended, guarding, rebound, rigid, pulsatile mass Extremities exam: Present: normal inspection, normal capillary refill. Absent: pedal edema, calf tenderness Back exam: Present: normal inspection. Absent: CVA tenderness (R), CVA tenderness (L) Neurological exam: Present: alert Skin exam: Present: warm, dry, intact, normal color. Absent: rash Course Vital Signs 10/23/23 01:30 Temperature 97.4 F L Pulse Rate 56 L Respiratory 16 Rate Blood Pressure 119/66 O2 Sat by Pulse 96 Oximetry Medical Decision Making - Medical Decision Making Was pt. sent in by a medical professional or institution (, PA, [employer], urgent care, hospital, or halfway...) When possible be specific @ -[No] Did you speak to anyone other than the patient for history (EMS, parent, family, police, friend...)? What history was obtained from this source @ -[No] Did you review nursing and triage notes (agree or disagree)? Why? @ -[I reviewed and agree with nursing and triage notes] Were old charts reviewed (outside hosp., previous admission, EMS record, old EKG, old radiological studies, urgent care reports/EKG's, halfway records)? Report findings @ -[No old charts were reviewed] Differential Diagnosis (chest pain, altered mental status, abdominal pain women, abdominal pain men, vaginal bleeding, weakness, fever, dyspnea, syncope, headache, dizziness, GI bleed, back pain, seizure, CVA, palpatations, mental health, musculoskeletal)? @ -[Differential Abdominal Pain Men: Appendicitis, cholecystitis, diverticulosis, ischemic bowel, pancreatitis, hepatitis, UTI, gastroenteritis, AAA, incarcerated hernia, bowel obstruction, constipation, inflammatory bowel, hepatitis, peptic ulcer disease, splenic infarction, perforated viscus, testicular torsion, this is not meant to be an all-inclusive list EKG interpreted by me (3pts min.). @ -[As above] X-rays interpreted by me (1pt min.). @ -[None done] CT interpreted by me (1pt min.). @ -[None done] U/S interpreted by me (1pt. min.). @ -[None done] What testing was considered but not performed or refused? (CT, X-rays, U/S, labs)? Why? @ -[None] What meds were considered but not given or refused? Why? @ -[None] Did you discuss the management of the patient with other professionals (professionals i.e. , PA, [employer], lab, RT, psych nurse, psychiatric social worker supervisor, transportation superintendent, teacher, parking officer, business case analyst)? Give summary @ -[No] Was smoking cessation discussed for >3mins.? @ -[No] Was critical care preformed (if so, how long)? @ -[No] Were there social determinants of health that impacted care today? How? (Home lessness, low income, unemployed, alcoholism, drug addiction, transportation, low edu. Level, literacy, decrease access to med. care, fci, rehab)? @ -[No] Was there de-escalation of care discussed even if they declined (Discuss DNR or withdrawal of care, Hospice)? DNR status @ -[No] What co-morbidities impacted this encounter? (DM, HTN, Smoking, COPD, CAD, Cancer, CVA, ARF, Chemo, Hep., AIDS, mental health diagnosis, sleep apnea, morbid obesity)? @ -[Diagnosis liver cancer Was patient admitted / discharged? Hospital course, mention meds given and route, prescriptions, significant lab abnormalities, going to OR and other pertinent info. @ -[Patient is 73-year-old man to have evaluation for cancer related pain. He did have improvement in symptoms after medication and would like to go home. Discussed return parameters Undiagnosed new problem with uncertain prognosis? @ -[No] Drug Therapy requiring intensive monitoring for toxicity (Heparin, Nitro, Insulin, Cardizem)? @ -[No] Were any procedures done? @ -[No] Diagnosis/symptom? @ -[Acute exacerbation of cancer pain Acute, or Chronic, or Acute on Chronic? @ -[Acute Uncomplicated (without systemic symptoms) or Complicated (systemic symptoms)? @ -[default] Side effects of treatment? @ -[No] Exacerbation, Progression, or Severe Exacerbation? @ -[No] Poses a threat to life or bodily function? How? (Chest pain, [place], AL, pneumonia, PE, COPD, DKA, ARF, appy, cholecystitis, CVA, Diverticulitis, Homicidal, Suicidal, threat to staff... and all critical care pts) @ -[No] - Lab Data Result diagrams: 10/23/23 01:44 10/23/23 01:44 Lab Results 10/23/23 10/23/23 10/23/23 Range/Units 01:44 01:44 01:44 WBC 8.1 (3.8-10.6) k/uL RBC 3.58 L (4.30-5.90) m/uL Hgb 11.3 L (13.0-17.5) gm/dL Hct 36.6 L (39.0-53.0) % MCV 102.2 H (80.0-100.0) fL MCH 31.5 (25.0-35.0) pg MCHC 30.9 L (31.0-37.0) g/dL RDW 18.6 H (11.5-15.5) % Plt Count 605 H (150-450) k/uL MPV 8.3 Neutrophils % 83 % Lymphocytes % 11 % Monocytes % 5 % Eosinophils % 1 % Basophils % 1 % Neutrophils # 6.7 (1.3-7.7) k/uL Lymphocytes # 0.9 L (1.0-4.8) k/uL Monocytes # 0.4 (0-1.0) k/uL Eosinophils # 0.1 (0-0.7) k/uL Basophils # 0.0 (0-0.2) k/uL Hypochromasia Marked Anisocytosis Slight Macrocytosis Moderate PT 12.1 (10.0-12.5) sec INR 1.1 (<1.2) APTT 29.1 (22.0-30.0) sec Sodium 141 (137-145) mmol/L Potassium 3.9 (3.5-5.1) mmol/L Chloride 104 (98-107) mmol/L Carbon Dioxide 26 (22-30) mmol/L Anion Gap 11 mmol/L BUN 24 H (9-20) mg/dL Creatinine 1.23 (0.66-1.25) mg/dL Est GFR (CKD-EPI)AfAm 68 (>60 ml/min/1.73 sqM) Est GFR (CKD-EPI)NonAf 59 (>60 ml/min/1.73 sqM) Glucose 108 H (74-99) mg/dL Plasma Lactic Acid [place] (0.7-2.0) mmol/L Calcium 9.8 (8.4-10.2) mg/dL Total Bilirubin 1.2 (0.2-1.3) mg/dL AST 333 H (17-59) U/L ALT 539 H (4-49) U/L Alkaline Phosphatase 259 H (38-126) U/L Total Protein 7.8 (6.3-8.2) g/dL Albumin 4.5 (3.5-5.0) g/dL 10/23/23 Range/Units 01:44 WBC (3.8-10.6) k/uL RBC (4.30-5.90) m/uL Hgb (13.0-17.5) gm/dL Hct (39.0-53.0) % MCV (80.0-100.0) fL MCH (25.0-35.0) pg MCHC (31.0-37.0) g/dL RDW (11.5-15.5) % Plt Count (150-450) k/uL MPV Neutrophils % % Lymphocytes % % Monocytes % % Eosinophils % % Basophils % % Neutrophils # (1.3-7.7) k/uL Lymphocytes # (1.0-4.8) k/uL Monocytes # (0-1.0) k/uL Eosinophils # (0-0.7) k/uL Basophils # (0-0.2) k/uL Hypochromasia Anisocytosis Macrocytosis PT (10.0-12.5) sec INR (<1.2) APTT (22.0-30.0) sec Sodium (137-145) mmol/L Potassium (3.5-5.1) mmol/L Chloride (98-107) mmol/L Carbon Dioxide (22-30) mmol/L Anion Gap mmol/L BUN (9-20) mg/dL Creatinine (0.66-1.25) mg/dL Est GFR (CKD-EPI)AfAm (>60 ml/min/1.73 sqM) Est GFR (CKD-EPI)NonAf (>60 ml/min/1.73 sqM) Glucose (74-99) mg/dL Plasma Lactic Acid [place] 1.0 (0.7-2.0) mmol/L Calcium (8.4-10.2) mg/dL Total Bilirubin (0.2-1.3) mg/dL AST (17-59) U/L ALT (4-49) U/L Alkaline Phosphatase (38-126) U/L Total Protein (6.3-8.2) g/dL Albumin (3.5-5.0) g/dL Disposition Clinical Impression: Chronic abdominal pain Disposition: HOME SELF-CARE Condition: Good Instructions (If sedation given, give patient instructions): Abdominal Pain (ED) Is patient prescribed a controlled substance at d/c from ED?: No Referrals: [facility],Clinic [Primary Care Provider] - 1-2 days
== END 2023-10-23 07:29 | disposition home or self-care (01) ==
LOC: EC 01:12
DX: R10.9 Unspecified abdominal pain
CPT/HCPCS: 36415; 80053; 83605; 85025; 85610; 85730; 99283

== ENCOUNTER 2023-12-16 05:18 | Emergency (ER) | payer OTHER ==
--- NOTE | 2023-12-16 05:54 | ED ---
Abdominal Pain HPI - General Chief Complaint: Abdominal Pain Stated Complaint: abd pain Time Seen by Provider: 12/16/23 05:29 Source: patient, EMS Mode of arrival: EMS Limitations: no limitations - History of Present Illness Initial Comments: This patient is a 73-year-old man with who states that he does have a history of stage IV cancer. He states that he has run out of his OxyContin and is having a flare of abdominal pain that he states is what he usually has related to his cancer. Patient states that he is currently having active treatment though he does not know what type of treatment it was. Last round of treatment was on Friday. The patient has not had vomiting. No change in urination or bowel movements. No fever or chills MD Complaint: abdominal pain -: hour(s) Location: diffuse Radiation: none Migration to: no migration Severity: moderate Quality: dull Consistency: constant Improves With: medication Worsens With: movement Associated Symptoms: denies other symptoms - Related Data Home Medications Medication Instructions Recorded Confirmed ARIPiprazole [Abilify] 10 mg PO DAILY 08/09/21 08/09/21 Acetaminophen-Codeine 300-30mg 1 tab PO TID PRN 08/09/21 08/09/21 [Tylenol w/codeine #3] Aspirin EC [Ecotrin Low Dose] 81 mg PO DAILY 08/09/21 08/09/21 Atorvastatin [Lipitor] 10 mg PO HS 08/09/21 08/09/21 Benztropine Mesylate [Cogentin] 1 mg PO HS 08/09/21 08/09/21 Cetirizine HCl [Zyrtec] 10 mg PO DAILY 08/09/21 08/09/21 Cholecalciferol [Vitamin D3 (25 50 mcg PO DAILY 08/09/21 08/09/21 Mcg = 1000 Iu)] Divalproex ER [Depakote ER] 500 mg PO HS 08/09/21 08/09/21 Fluticasone Nasal [place] [Flonase 1 spray EA NOSTRIL BID 08/09/21 08/09/21 Nasal [place]] Gabapentin [Neurontin] 300 mg PO TID 08/09/21 08/09/21 Ibuprofen [Motrin] 800 mg PO TID PRN 08/09/21 08/09/21 Multivitamins, Thera [Multivitamin 1 tab PO DAILY 08/09/21 08/09/21 (formulary)] Naloxone HCl [Narcan] 4 mg NASAL DIRECTED PRN 08/09/21 08/09/21 Omeprazole [PriLOSEC] 20 mg PO DAILY 08/09/21 08/09/21 Tamsulosin HCl [Flomax] 0.8 mg PO DAILY 08/09/21 08/09/21 Triamterene-Hctz 37.5-25Mg 1 tab PO DAILY 08/09/21 08/09/21 [Maxzide 37.5-25] hydrALAZINE HCL [Apresoline] 50 mg PO TID 08/09/21 08/09/21 traZODone HCL [Desyrel] 50 mg PO HS 08/09/21 08/09/21 Previous Rx's Medication Instructions Recorded [place] Carbonate 150 mg PO DAILY 30 Days #30 cap 08/10/21 methocarbamoL 750 mg PO TID PRN #0 08/10/21 oxyCODONE HCL/ACETAMINOPHEN 1 tab PO Q8H 3 Days #15 tab 12/16/23 [oxyCODONE HCL/ACETAMINOPHEN 5-325] Allergies Allergy/AdvReac Type Severity Reaction Status Date / Time chocolate flavor Allergy Unknown Verified 12/16/23 05:22 bupropion [From Wellbutrin] AdvReac Seizure Verified 12/16/23 05:22 Review of Systems ROS Statement: Those systems with pertinent positive or pertinent negative responses have been documented in the HPI. ROS Other: All systems not noted in ROS Statement are negative. Constitutional: Denies: fever, chills Respiratory: Denies: cough, dyspnea Cardiovascular: Denies: chest pain, palpitations Gastrointestinal: Reports: abdominal pain. Denies: nausea, vomiting, diarrhea, constipation Genitourinary: Denies: dysuria, hematuria, testicular pain Musculoskeletal: Denies: back pain Skin: Denies: rash Neurological: Denies: headache Past Medical History Past Medical History: No Reported History Additional Past Medical History / Comment(s): Liver CA History of Any Multi-Drug Resistant Organisms: None Reported Past Surgical History: No Surgical Hx Reported Past Psychological History: No Psychological Hx Reported Smoking Status: Current every day smoker Past Alcohol Use History: None Reported Past Drug Use History: None Reported General Exam Limitations: no limitations General appearance: alert, in no apparent distress Head exam: Present: atraumatic, normocephalic Eye exam: Present: normal appearance. Absent: scleral icterus, conjunctival injection ENT exam: Present: normal oropharynx Respiratory exam: Present: normal lung sounds bilaterally. Absent: respiratory distress, wheezes, rales, rhonchi, stridor, accessory muscle use Cardiovascular Exam: Present: regular rate, normal rhythm, normal heart sounds. Absent: systolic murmur, diastolic murmur, rubs, gallop GI/Abdominal exam: Present: soft, distended, organomegaly (Liver is enlarged to the umbilicus and is nodular), hernia (Patient does have small umbilical hernia nontender and reducible). Absent: tenderness, guarding, rebound, rigid, pulsatile mass Extremities exam: Present: normal inspection, normal capillary refill, pedal edema. Absent: calf tenderness Back exam: Present: normal inspection. Absent: CVA tenderness (R), CVA tenderness (L) Neurological exam: Present: alert Skin exam: Present: warm, dry, intact, normal color. Absent: rash Course Vital Signs 12/16/23 05:20 Temperature 98.0 F Pulse Rate 64 Respiratory 18 Rate Blood Pressure 130/75 O2 Sat by Pulse 96 Oximetry Medical Decision Making - Lab Data Result diagrams: 12/16/23 06:04 12/16/23 06:04 Lab Results 12/16/23 12/16/23 12/16/23 Range/Units 06:04 06:04 06:04 WBC 3.8 (3.8-10.6) k/uL RBC 3.18 L (4.30-5.90) m/uL Hgb 10.0 L (13.0-17.5) gm/dL Hct 32.2 L (39.0-53.0) % MCV 101.2 H (80.0-100.0) fL MCH 31.4 (25.0-35.0) pg MCHC 31.1 (31.0-37.0) g/dL RDW 17.4 H (11.5-15.5) % Plt Count 410 (150-450) k/uL MPV 11.2 Anisocytosis Slight Macrocytosis Slight Sodium 134 L (137-145) mmol/L Potassium 5.3 H (3.5-5.1) mmol/L Chloride 99 (98-107) mmol/L Carbon Dioxide 24 (22-30) mmol/L Anion Gap 11 mmol/L BUN 65 H (9-20) mg/dL Creatinine 1.95 H (0.66-1.25) mg/dL Est GFR (CKD-EPI)AfAm 39 (>60 ml/min/1.73 sqM) Est GFR (CKD-EPI)NonAf 34 (>60 ml/min/1.73 sqM) Glucose 89 (74-99) mg/dL Plasma Lactic Acid Juvenal 0.7 (0.7-2.0) mmol/L Calcium 9.1 (8.4-10.2) mg/dL Total Bilirubin 2.9 H (0.2-1.3) mg/dL AST 911 H (17-59) U/L ALT 871 H (4-49) U/L Alkaline Phosphatase 228 H (38-126) U/L Total Protein 6.8 (6.3-8.2) g/dL Albumin 3.7 (3.5-5.0) g/dL Amylase 54 (30-110) U/L Lipase 160 (23-300) U/L Disposition Clinical Impression: Chronic abdominal pain Disposition: HOME SELF-CARE Condition: Fair Instructions (If sedation given, give patient instructions): Abdominal Pain (ED) Prescriptions: oxyCODONE HCL/ACETAMINOPHEN [oxyCODONE HCL/ACETAMINOPHEN 5-325] 1 tab PO Q8H 3 Days #15 tab Is patient prescribed a controlled substance at d/c from ED?: Yes When asked, does pt state using other controlled substances?: No If prescribed controlled substance>3 days was MAPS reviewed?: Prescribed <3 Days If opioid is for acute pain is fill amount 7 days or less?: Yes If Rx opioid, was Start Talking consent form obtained?: Yes Referrals: [facility],Clinic [Primary Care Provider] - 1-2 days
[2023-12-16 06:23] LABS: African American GFR (CKD) 39 (>60 ml/min/1.73 sqM); Albumin 3.7 g/dL (3.5-5.0); Amylase 54 U/L (30-110); Anion Gap 11 mmol/L; Blood Urea Nitrogen 65 mg/dL (9-20); Calcium 9.1 mg/dL (8.4-10.2); Carbon Dioxide 24 mmol/L (22-30); Chloride 99 mmol/L (98-107); Glucose 89 mg/dL (74-99); Lipase 160 U/L (23-300); Non-African American GFR(CKD) 34 (>60 ml/min/1.73 sqM); Sodium 134 mmol/L (137-145); Total Bilirubin 2.9 mg/dL (0.2-1.3); Total Protein 6.8 g/dL (6.3-8.2)
[2023-12-16 06:33] LABS: ALT 871 U/L (4-49)
[2023-12-16 06:37] LABS: AST 911 U/L (17-59); Alkaline Phosphatase 228 U/L (38-126)
[2023-12-16 06:38] LABS: Potassium 5.3 mmol/L (3.5-5.1)
[2023-12-16 07:08] LABS: Anisocytosis Slight; Basophils % (A) 0 %; Eosinophils % (A) 1 %; HCT 32.2 % (39.0-53.0); Lymphocytes # (A) 0.2 k/uL (1.0-4.8); Lymphocytes % (A) 5 %; MCH 31.4 pg (25.0-35.0); MCHC 31.1 g/dL (31.0-37.0); MCV 101.2 fL (80.0-100.0); Macrocytosis Slight; Mean Platelet Volume 11.2; Monocytes # (A) 0.3 k/uL (0-1.0); Monocytes % (A) 7 %; Neutrophils # (A) 3.2 k/uL (1.3-7.7); Neutrophils % (A) 84 %; RBC 3.18 m/uL (4.30-5.90); RDW 17.4 % (11.5-15.5); WBC 3.8 k/uL (3.8-10.6)
[2023-12-16] MEDS: SODIUM CHLORIDE 0.9% 500 ML 500 ML IV STA (07:31)
[2023-12-16 07:51] LABS: Platelet Count 410 k/uL (150-450)
[2023-12-16 07:52] LABS: Target Cells Present
[2023-12-16 09:32] VITALS: BP 123/66; PULSE 68; RESP 18; TEMP 98.7
== END 2023-12-16 09:59 | disposition home or self-care (01) ==
LOC: EC 05:18 → EEVIPCON 05:18 → EC 09:59
DX: R10.9 Unspecified abdominal pain (principal); G89.3 Neoplasm related pain (acute) (chronic); F17.200 Nicotine dependence, unspecified, uncomplicated; Z88.8 Allergy status to other drugs, medicaments and biological substances
CPT/HCPCS: 36415; 80053; 82150; 83605; 83690; 85025; 96360; 99284

== ENCOUNTER 2023-12-27 13:19 | Inpatient (IN) | payer OTHER, MEDICARE ==
[2023-12-27 13:57] LABS: Glucose,Whole Blood 129 mg/dL (70-110)
[2023-12-27 14:02] LABS: Anisocytosis Slight; Basophils % (A) 0 %; Eosinophils # (A) 0.1 k/uL (0-0.7); Eosinophils % (A) 2 %; HCT 29.5 % (39.0-53.0); HGB 9.3 gm/dL (13.0-17.5); Hypochromasia Moderate; Lymphocytes # (A) 0.2 k/uL (1.0-4.8); Lymphocytes % (A) 5 %; MCH 31.8 pg (25.0-35.0); MCHC 31.7 g/dL (31.0-37.0); MCV 100.3 fL (80.0-100.0); Macrocytosis Slight; Mean Platelet Volume 8.6; Monocytes # (A) 0.1 k/uL (0-1.0); Monocytes % (A) 3 %; Neutrophils # (A) 3.9 k/uL (1.3-7.7); Neutrophils % (A) 88 %; Platelet Count 451 k/uL (150-450); RBC 2.94 m/uL (4.30-5.90); RDW 17.3 % (11.5-15.5); WBC 4.4 k/uL (3.8-10.6)
[2023-12-27 14:11] LABS: Lactic Acid, Venous 0.9 mmol/L (0.7-2.0)
[2023-12-27 14:13] LABS: African American GFR (CKD) 28 (>60 ml/min/1.73 sqM); Albumin 3.3 g/dL (3.5-5.0); Alcohol <10 mg/dL; Alkaline Phosphatase 228 U/L (38-126); Anion Gap 12 mmol/L; Blood Urea Nitrogen 87 mg/dL (9-20); Calcium 8.8 mg/dL (8.4-10.2); Carbon Dioxide 19 mmol/L (22-30); Chloride 101 mmol/L (98-107); Glucose 116 mg/dL (74-99); Magnesium 2.5 mg/dL (1.6-2.3); Non-African American GFR(CKD) 24 (>60 ml/min/1.73 sqM); Potassium 3.9 mmol/L (3.5-5.1); Sodium 132 mmol/L (137-145); Total Bilirubin 2.4 mg/dL (0.2-1.3); Total Protein 6.3 g/dL (6.3-8.2)
[2023-12-27 14:15] LABS: INR 1.4 (<1.2); Partial Thromboplastin Time 34.6 sec (22.0-30.0); Prothrombin Time 14.3 sec (10.0-12.5)
--- NOTE | 2023-12-27 14:20 | ED ---
General Adult HPI - General Chief complaint: Altered Mental Status Stated complaint: lethargic Time Seen by Provider: 12/27/23 13:33 Source: EMS, RN notes reviewed, old records reviewed Mode of arrival: ambulatory Limitations: altered mental status - History of Present Illness Initial comments: 73 yo male with altered mental status. Patient is not able to contribute at all to the history. The paramedics state that he is baseline alert and oriented x 4. Patient was hypotensive and bradycardic during transport. Attempts to obtain further history from legal guardian were obtained at the onset and at this time there is no further history available. It is reported in the medical record that there is liver disease. - Related Data Home Medications Medication Instructions Recorded Confirmed ARIPiprazole [Abilify] 10 mg PO DAILY 08/09/21 08/09/21 Acetaminophen-Codeine 300-30mg 1 tab PO TID PRN 08/09/21 08/09/21 [Tylenol w/codeine #3] Aspirin EC [Ecotrin Low Dose] 81 mg PO DAILY 08/09/21 08/09/21 Atorvastatin [Lipitor] 10 mg PO HS 08/09/21 08/09/21 Benztropine Mesylate [Cogentin] 1 mg PO HS 08/09/21 08/09/21 Cetirizine HCl [Zyrtec] 10 mg PO DAILY 08/09/21 08/09/21 Cholecalciferol [Vitamin D3 (25 50 mcg PO DAILY 08/09/21 08/09/21 Mcg = 1000 Iu)] Divalproex ER [Depakote ER] 500 mg PO HS 08/09/21 08/09/21 Fluticasone Nasal [place] [Flonase 1 spray EA NOSTRIL BID 08/09/21 08/09/21 Nasal [place]] Gabapentin [Neurontin] 300 mg PO TID 08/09/21 08/09/21 Ibuprofen [Motrin] 800 mg PO TID PRN 08/09/21 08/09/21 Multivitamins, Thera [Multivitamin 1 tab PO DAILY 08/09/21 08/09/21 (formulary)] Naloxone HCl [Narcan] 4 mg NASAL DIRECTED PRN 08/09/21 08/09/21 Omeprazole [PriLOSEC] 20 mg PO DAILY 08/09/21 08/09/21 Tamsulosin HCl [Flomax] 0.8 mg PO DAILY 08/09/21 08/09/21 Triamterene-Hctz 37.5-25Mg 1 tab PO DAILY 08/09/21 08/09/21 [Maxzide 37.5-25] hydrALAZINE HCL [Apresoline] 50 mg PO TID 08/09/21 08/09/21 traZODone HCL [Desyrel] 50 mg PO HS 08/09/21 08/09/21 Previous Rx's Medication Instructions Recorded [place] Carbonate 150 mg PO DAILY 30 Days #30 cap 08/10/21 methocarbamoL 750 mg PO TID PRN #0 08/10/21 oxyCODONE HCL/ACETAMINOPHEN 1 tab PO Q8H 3 Days #15 tab 12/16/23 [oxyCODONE HCL/ACETAMINOPHEN 5-325] Allergies Allergy/AdvReac Type Severity Reaction Status Date / Time chocolate flavor Allergy Unknown Verified 12/27/23 13:34 bupropion [From Wellbutrin] AdvReac Seizure Verified 12/27/23 13:34 Review of Systems ROS Statement: Those systems with pertinent positive or pertinent negative responses have been documented in the HPI. ROS Other: All systems not noted in ROS Statement are negative. Past Medical History Past Medical History: No Reported History Additional Past Medical History / Comment(s): Liver CA History of Any Multi-Drug Resistant Organisms: None Reported Past Surgical History: No Surgical Hx Reported Past Psychological History: No Psychological Hx Reported Smoking Status: Current every day smoker Past Alcohol Use History: None Reported Past Drug Use History: None Reported General Exam General appearance: in no apparent distress, lethargic Head exam: Present: atraumatic, normocephalic Eye exam: Present: normal appearance, PERRL ENT exam: Present: mucous membranes dry Neck exam: Present: normal inspection. Absent: tenderness, meningismus Respiratory exam: Present: rhonchi. Absent: respiratory distress Cardiovascular Exam: Present: regular rate, normal rhythm GI/Abdominal exam: Present: soft. Absent: distended, tenderness, guarding Extremities exam: Present: pedal edema Neurological exam: Present: alert. Absent: oriented X3, motor sensory deficit Skin exam: Present: warm, dry, intact Course Vital Signs 12/27/23 12/27/23 13:31 14:34 Temperature 97.5 F L Pulse Rate 60 55 L Respiratory 16 17 Rate Blood Pressure 85/55 81/58 O2 Sat by Pulse 96 94 L Oximetry Medical Decision Making - Medical Decision Making Was pt. sent in by a medical professional or institution (DELVIS Maynard, SURVEILLANCE AGENT, urgent care, hospital, or correction...) When possible be specific @ -No Did you speak to anyone other than the patient for history (EMS, parent, family, police, friend...)? What history was obtained from this source @ -No Did you review nursing and triage notes (agree or disagree)? Why? @ -I reviewed and agree with nursing and triage notes Were old charts reviewed (outside hosp., previous admission, EMS record, old EKG, old radiological studies, urgent care reports/EKG's, correction records)? Report findings @ -No old charts were reviewed Differential Altered Mental Status: Hypoglycemia, DKA, hypercapnia, ETOH, overdose, CO poisoning, trauma, myxedema coma, HTN encephalopathy, infection, encephalitis, psychosis, intercranial hemorrhage, hepatic encephalopathy, meningitis, CVA, this is not meant to be an all-inclusive list EKG interpreted by me (3pts min.). @ -Sinus bradycardia rate of 54 OK interval 180, QRS duration 108, QTc [address] segment elevation. X-rays interpreted by me (1pt min.). @ -X-ray negative for consolidated pneumonia CT interpreted by me (1pt min.). @ -CT brain negative for intracranial hemorrhage or mass effect U/S interpreted by me (1pt. min.). @ -None done What testing was considered but not performed or refused? (CT, X-rays, U/S, labs)? Why? @ -None What meds were considered but not given or refused? Why? @ -None Did you discuss the management of the patient with other professionals ([facility] i.e. DELVIS Maynard, SURVEILLANCE AGENT, lab, RT, psych nurse, social work nurse, labor and employment paralegal, teacher, founder and chief technical officer, family caseworker)? Give summary @ -No Was smoking cessation discussed for >3mins.? @ -No Was critical care preformed (if so, how long)? @ -No Were there social determinants of health that impacted care today? How? (Homelessness, low income, unemployed, alcoholism, drug addiction, transportation, low edu. Level, literacy, decrease access to med. care, long-term, rehab)? @ -No Was there de-escalation of care discussed even if they declined (Discuss DNR or withdrawal of care, Hospice)? DNR status @ -No What co-morbidities impacted this encounter? (DM, HTN, Smoking, COPD, CAD, Cancer, CVA, ARF, Chemo, Hep., AIDS, mental health diagnosis, sleep apnea, morbid obesity)? @ -Liver cancer, ascites Was patient admitted / discharged? Hospital course, mention meds given and route, prescriptions, significant lab abnormalities, going to OR and other pertinent info. @ -73 yo male with increased confusion, history of liver cancer, chronic kidney disease. Patient is unable to contribute to the history. Workup is initially including head CT, chest x-ray, laboratory testing. Workup reveals worsening kidney function with elevated BUN as well as a mildly elevated ammonia. Urinalysis is pending. Patient's increased confusion and altered mental status likely multifactorial related to uremia, metabolic encephalopathy and hyperammonemia. Given fluids, and lactulose. Will be admitted to internal medicine, case discussed with Dr. Donald glez [facility]. Undiagnosed new problem with uncertain prognosis? @ -No Drug Therapy requiring intensive monitoring for toxicity (Heparin, Nitro, Insulin, Cardizem)? @ -No Were any procedures done? @ -No Diagnosis/symptom? @Metabolic encephalopathy Acute, or Chronic, or Acute on Chronic? @ -[Acute Uncomplicated (without systemic symptoms) or Complicated (systemic symptoms)? @ -Default Side effects of treatment? @ -No Exacerbation, Progression, or Severe Exacerbation? @ -No Poses a threat to life or bodily function? How? (Chest pain, USA, NM, pneumonia, PE, COPD, DKA, ARF, appy, cholecystitis, CVA, Diverticulitis, Homicidal, Suic idal, threat to staff... and all critical care pts) @Moderate risk - Lab Data Result diagrams: 12/27/23 13:47 12/27/23 13:47 Lab Results 12/27/23 12/27/23 12/27/23 Range/Units 13:47 13:47 13:47 WBC 4.4 (3.8-10.6) k/uL RBC 2.94 L (4.30-5.90) m/uL Hgb 9.3 L (13.0-17.5) gm/dL Hct 29.5 L (39.0-53.0) % MCV 100.3 H (80.0-100.0) fL MCH 31.8 (25.0-35.0) pg MCHC 31.7 (31.0-37.0) g/dL RDW 17.3 H (11.5-15.5) % Plt Count 451 H (150-450) k/uL MPV 8.6 Neutrophils % 88 % Lymphocytes % 5 % Monocytes % 3 % Eosinophils % 2 % Basophils % 0 % Neutrophils # 3.9 (1.3-7.7) k/uL Lymphocytes # 0.2 L (1.0-4.8) k/uL Monocytes # 0.1 (0-1.0) k/uL Eosinophils # 0.1 (0-0.7) k/uL Basophils # 0.0 (0-0.2) k/uL Hypochromasia Moderate Anisocytosis Slight Macrocytosis Slight PT 14.3 H (10.0-12.5) sec INR 1.4 H (<1.2) APTT 34.6 H (22.0-30.0) sec Sodium 132 L (137-145) mmol/L Potassium 3.9 (3.5-5.1) mmol/L Chloride 101 (98-107) mmol/L Carbon Dioxide 19 L (22-30) mmol/L Anion Gap 12 mmol/L BUN 87 H (9-20) mg/dL Creatinine 2.52 H (0.66-1.25) mg/dL Est GFR (CKD-EPI)AfAm 28 (>60 ml/min/1.73 sqM) Est GFR (CKD-EPI)NonAf 24 (>60 ml/min/1.73 sqM) Glucose 116 H (74-99) mg/dL POC Glucose (mg/dL) (70-110) mg/dL POC Glu Collar Feller ID Plasma Lactic Acid Juvenal (0.7-2.0) mmol/L Calcium 8.8 (8.4-10.2) mg/dL Magnesium 2.5 H (1.6-2.3) mg/dL Total Bilirubin 2.4 H (0.2-1.3) mg/dL AST 957 H (17-59) U/L ALT 1028 H (4-49) U/L Alkaline Phosphatase 228 H (38-126) U/L Ammonia (<30) umol/L Troponin I (0.000-0.034) ng/mL Total Protein 6.3 (6.3-8.2) g/dL Albumin 3.3 L (3.5-5.0) g/dL Serum Alcohol <10 mg/dL 12/27/23 12/27/23 12/27/23 Range/Units 13:47 13:47 13:55 WBC (3.8-10.6) k/uL RBC (4.30-5.90) m/uL Hgb (13.0-17.5) gm/dL Hct (39.0-53.0) % MCV (80.0-100.0) fL MCH (25.0-35.0) pg MCHC (31.0-37.0) g/dL RDW (11.5-15.5) % Plt Count (150-450) k/uL MPV Neutrophils % % Lymphocytes % % Monocytes % % Eosinophils % % Basophils % % Neutrophils # (1.3-7.7) k/uL Lymphocytes # (1.0-4.8) k/uL Monocytes # (0-1.0) k/uL Eosinophils # (0-0.7) k/uL Basophils # (0-0.2) k/uL Hypochromasia Anisocytosis Macrocytosis PT (10.0-12.5) sec INR (<1.2) APTT (22.0-30.0) sec Sodium (137-145) mmol/L Potassium (3.5-5.1) mmol/L Chloride (98-107) mmol/L Carbon Dioxide (22-30) mmol/L Anion Gap mmol/L BUN (9-20) mg/dL Creatinine (0.66-1.25) mg/dL Est GFR (CKD-EPI)AfAm (>60 ml/min/1.73 sqM) Est GFR (CKD-EPI)NonAf (>60 ml/min/1.73 sqM) Glucose (74-99) mg/dL POC Glucose (mg/dL) 129 H (70-110) mg/dL POC Glu Collar Feller ID Kemar Radha Plasma Lactic Acid Juvenal 0.9 (0.7-2.0) mmol/L Calcium (8.4-10.2) mg/dL Magnesium (1.6-2.3) mg/dL Total Bilirubin (0.2-1.3) mg/dL AST (17-59) U/L ALT (4-49) U/L Alkaline Phosphatase (38-126) U/L Ammonia 47 H (<30) umol/L Troponin I <0.012 (0.000-0.034) ng/mL Total Protein (6.3-8.2) g/dL Albumin (3.5-5.0) g/dL Serum Alcohol mg/dL Disposition Clinical Impression: Uremic encephalopathy, Hepatic encephalopathy Disposition: ADMITTED IP TO THIS HOSP Condition: Stable Is patient prescribed a controlled substance at d/c from ED?: No Referrals: [facility],Clinic [Primary Care Provider] - 1-2 days Time of Disposition: 17:22
[2023-12-27 14:28] LABS: ALT 1028 U/L (4-49); AST 957 U/L (17-59)
[2023-12-27] MEDS: SODIUM CHLORIDE 0.9% 1,000 ML IV SCH (14:42)
[2023-12-27] MEDS: LACTULOSE 20 GM/30 ML CUP PO ONE (14:45)
--- NOTE | 2023-12-27 15:18 | XR ---
EXAMINATION TYPE: XR chest 1V portable DATE OF EXAM: 12/27/2023 2:40 PM COMPARISON: Chest radiographs from 08/09/2021. CLINICAL INDICATION: Male, 73 years old with history of altered mental status; LOCATED WITHIN [facility] TECHNIQUE: XR chest 1V portable Frontal view of the chest. FINDINGS: Lungs/Pleura: There is no evidence of pleural effusion, focal consolidation, or pneumothorax. Pulmonary vascularity: Unremarkable. Heart/mediastinum: Cardiomediastinal silhouette is unremarkable. Musculoskeletal: No acute osseous pathology. Other findings: None Lines/Tubes: Left internal jugular central venous catheter with distal tip at the cavoatrial junction. IMPRESSION: No acute cardiopulmonary disease/process. [facility], , 12/27/2023 3:16 PM
--- NOTE | 2023-12-27 16:38 | CT ---
EXAMINATION TYPE: CT brain wo con DATE OF EXAM: 12/27/2023 4:04 PM COMPARISON: 08/09/2021. CLINICAL INDICATION: Male, 73 years old with history of Altered mental status, AMS TECHNIQUE: Brain: Axial CT images of the brain were obtained with coronal and sagittal reformats created and rev iewed. Contrast used: None. Oral contrast used: None. CT DLP: 1184.4 mGycm, Automated exposure control for dose reduction was used. FINDINGS: Brain: Extra-axial spaces: No abnormal extra-axial fluid collections. Somewhat dilated left posterior fronta l sulcus possibly representing underlying arachnoid cyst. Ventricular system: Dilatation in proportion to cerebral atrophy. Cerebral parenchyma: Cerebral atrophy. No acute intraparenchymal hemorrhage or mass effect. The lau -white junction is well differentiated. Scattered hypoattenuating areas are seen within the white mat ter. Cerebellum: Unremarkable. Mass effect: No evidence of midline shift. Intracranial vasculature: Atherosclerotic calcifications of the intracranial vessels. Soft tissues: Normal. Calvarium/osseous structures: No depressed skull fracture. Paranasal sinuses and mastoid air cells: Mild scattered paranasal sinus disease. Visualized orbits: Bilateral aphakia IMPRESSION: 1. No acute intracranial process. 2. Nonspecific white matter changes, likely secondary to chronic small vessel ischemic disease. [facility], , 12/27/2023 4:35 PM
[2023-12-27] MEDS ORDERED: NALOXONE 0.4 MG/ML 1 ML VIAL IV PRN (17:10)
[2023-12-27] MEDS ORDERED: ONDANSETRON 4 MG/2 ML VIAL IVP PRN (17:11)
--- NOTE | 2023-12-27 18:07 | P.HPIM ---
History of Present Illness H&P Date: 12/27/23 Chief Complaint: altered mental status Patient is a 73-year-old male with a past medical history of stage IV lung cancer currently on chemotherapy, hypertension, bipolar disorder who was brought in by EMS for altered mental status. Patient is a poor historian so unable to o btain history from the patient. Patient daughter was at bedside who is not the legal guardian. She states that patient did get chemotherapy about 1 month ago. She states that he saw his oncologist a few days ago and did get IV fluids which seemed to help. She states that her father has not been eating and drinking much. She also states that her father is taking oxycodone for pain control. She states that he walks with a shuffling gait without using a walker. She states that she was with him at his appointments at [facility] and she was told by the doctors that there is no cure for his cancer and that this is all palliative care. The ED physician did speak with patient's guardian and patient was made no code. ROS: Unable to obtain history due to altered mental status Physical exam General: [Patient somnolent lethargic and appears malnourished]. Eye: [+ Scleral icterus and opens eyes to his name]. HENT: [Normocephalic, clear tympanic membranes, normal hearing, dry oral mucosa, no scleral icterus, no sinus tenderness]. Neck: [Supple, non-tender, no carotid bruits, no JVD, no lymphadenopathy]. Lungs: [Clear to auscultation and percussion, non-labored respiration]. Heart: [Normal rate, regular rhythm, no murmur, gallop or edema]. Abdomen: [distended, normal bowel sounds, no masses]. Musculoskeletal: [Normal range of motion and strength, no tenderness or swelling]. Neurologic: [Awake, alert, and oriented X2, CN II-XII intact]. Psychiatric: [Somnolent and lethargic]. Assessment and plan Acute metabolic encephalopathy secondary to polypharmacy and acute kidney injury I discussed with the ED physician and accepted the admission for treatment of the patient's encephalopathy I suspect patient was dehydrated which increased the potency of his pain medications causing the encephalopathy. I reviewed CT head that was unremarkable. Will start the patient on normal saline at 75 cc an hour. If no improvement in his mental status then we will consider further workup Ammonia level is 47. I doubt this is the cause of patient's encephalopathy. I will hold off on the lactulose as it can worsen patient's dehydration. Check UA Will hold all sedating medications including patient's pain medications. Acute kidney injury secondary to dehydration and hypovolemia Dehydration and hypovolemia Creatinine baseline is around 1.8 Continue with IV fluids Trend BMP Stage IV lung cancer Daughter understands that patient prognosis is guarded. She plans to speak with the guardian about goals of care. Ascites Secondary to metastasis Will consult IR Transaminitis and hyperbilirubinemia secondary to liver cancer Patient's LFTs appear to be increasing from baseline Bipolar disorder Will need to verify patient's home medications Hypertension Hold off on BP meds due to low blood pressure DVT prophylaxis: Hold off on subcu heparin as I am not sure if patient has brain metastasis. Past Medical History Past Medical History: No Reported History Additional Past Medical History / Comment(s): Liver CA History of Any Multi-Drug Resistant Organisms: None Reported Past Surgical History: No Surgical Hx Reported Past Psychological History: No Psychological Hx Reported Smoking Status: Current every day smoker Past Alcohol Use History: None Reported Past Drug Use History: None Reported Medications and Allergies Home Medications Medication Instructions Recorded Confirmed Type ARIPiprazole [Abilify] 10 mg PO DAILY 08/09/21 08/09/21 History Acetaminophen-Codeine 300-30mg 1 tab PO TID PRN 08/09/21 08/09/21 History [Tylenol w/codeine #3] Aspirin EC [Ecotrin Low Dose] 81 mg PO DAILY 08/09/21 08/09/21 History Atorvastatin [Lipitor] 10 mg PO HS 08/09/21 08/09/21 History Benztropine Mesylate [Cogentin] 1 mg PO HS 08/09/21 08/09/21 History Cetirizine HCl [Zyrtec] 10 mg PO DAILY 08/09/21 08/09/21 History Cholecalciferol [Vitamin D3 (25 50 mcg PO DAILY 08/09/21 08/09/21 History Mcg = 1000 Iu)] Divalproex ER [Depakote ER] 500 mg PO HS 08/09/21 08/09/21 History Fluticasone Nasal [place] [Flonase 1 spray EA NOSTRIL BID 08/09/21 08/09/21 History Nasal [place]] Gabapentin [Neurontin] 300 mg PO TID 08/09/21 08/09/21 History Ibuprofen [Motrin] 800 mg PO TID PRN 08/09/21 08/09/21 History Multivitamins, Thera [Multivitamin 1 tab PO DAILY 08/09/21 08/09/21 History (formulary)] Naloxone HCl [Narcan] 4 mg NASAL DIRECTED PRN 08/09/21 08/09/21 History Omeprazole [PriLOSEC] 20 mg PO DAILY 08/09/21 08/09/21 History Tamsulosin HCl [Flomax] 0.8 mg PO DAILY 08/09/21 08/09/21 History Triamterene-Hctz 37.5-25Mg 1 tab PO DAILY 08/09/21 08/09/21 History [Maxzide 37.5-25] hydrALAZINE HCL [Apresoline] 50 mg PO TID 08/09/21 08/09/21 History traZODone HCL [Desyrel] 50 mg PO HS 08/09/21 08/09/21 History [place] Carbonate 150 mg PO DAILY 30 Days #30 cap 08/10/21 Rx methocarbamoL 750 mg PO TID PRN #0 08/10/21 08/09/21 Rx oxyCODONE HCL/ACETAMINOPHEN 1 tab PO Q8H 3 Days #15 tab 12/16/23 Rx [oxyCODONE HCL/ACETAMINOPHEN 5-325] Allergies Allergy/AdvReac Type Severity Reaction Status Date / Time chocolate flavor Allergy Unknown Verified 12/27/23 13:34 bupropion [From Wellbutrin] AdvReac Seizure Verified 12/27/23 13:34 Physical Exam Osteopathic Statement: *. No significant issues noted on an osteopathic structural exam other than those noted in the History and Physical/Consult. Vitals: Vital Signs Temp Pulse Resp BP Pulse Ox 12/27/23 17:00 52 L 17 91/60 12/27/23 14:34 55 L 17 81/58 94 L 12/27/23 13:31 97.5 F L 60 16 85/55 96 Intake and Output 12/27/23 12/27/23 12/27/23 06:59 14:59 22:59 Other: Weight 49.895 kg Results CBC & Chem 7: 12/27/23 13:47 12/27/23 13:47 Labs: Abnormal Lab Results - Last 24 Hours (Table) 12/27/23 12/27/23 12/27/23 Range/Units 13:47 13:47 13:47 RBC 2.94 L (4.30-5.90) m/uL Hgb 9.3 L (13.0-17.5) gm/dL Hct 29.5 L (39.0-53.0) % MCV 100.3 H (80.0-100.0) fL RDW 17.3 H (11.5-15.5) % Plt Count 451 H (150-450) k/uL Lymphocytes # 0.2 L (1.0-4.8) k/uL PT 14.3 H (10.0-12.5) sec INR 1.4 H (<1.2) APTT 34.6 H (22.0-30.0) sec Sodium 132 L (137-145) mmol/L Carbon Dioxide 19 L (22-30) mmol/L BUN 87 H (9-20) mg/dL Creatinine 2.52 H (0.66-1.25) mg/dL Glucose 116 H (74-99) mg/dL POC Glucose (mg/dL) (70-110) mg/dL Magnesium 2.5 H (1.6-2.3) mg/dL Total Bilirubin 2.4 H (0.2-1.3) mg/dL AST 957 H (17-59) U/L ALT 1028 H (4-49) U/L Alkaline Phosphatase 228 H (38-126) U/L Ammonia (<30) umol/L Albumin 3.3 L (3.5-5.0) g/dL 12/27/23 12/27/23 Range/Units 13:47 13:55 RBC (4.30-5.90) m/uL Hgb (13.0-17.5) gm/dL Hct (39.0-53.0) % MCV (80.0-100.0) fL RDW (11.5-15.5) % Plt Count (150-450) k/uL Lymphocytes # (1.0-4.8) k/uL PT (10.0-12.5) sec INR (<1.2) APTT (22.0-30.0) sec Sodium (137-145) mmol/L Carbon Dioxide (22-30) mmol/L BUN (9-20) mg/dL Creatinine (0.66-1.25) mg/dL Glucose (74-99) mg/dL POC Glucose (mg/dL) 129 H (70-110) mg/dL Magnesium (1.6-2.3) mg/dL Total Bilirubin (0.2-1.3) mg/dL AST (17-59) U/L ALT (4-49) U/L Alkaline Phosphatase (38-126) U/L Ammonia 47 H (<30) umol/L Albumin (3.5-5.0) g/dL
[2023-12-27] MEDS: SODIUM CHLORIDE 0.9% 1,000 ML IV ONE (21:21)
[2023-12-28] MEDS ORDERED: LACTULOSE 20 GM/30 ML CUP PO SCH
[2023-12-28 07:31] LABS: Anisocytosis Slight; HCT 33.2 % (39.0-53.0); HGB 10.2 gm/dL (13.0-17.5); Hypochromasia Slight; MCH 30.8 pg (25.0-35.0); MCHC 30.7 g/dL (31.0-37.0); MCV 100.4 fL (80.0-100.0); Macrocytosis Slight; Mean Platelet Volume 11.2; RBC 3.31 m/uL (4.30-5.90); RDW 17.6 % (11.5-15.5); WBC 4.4 k/uL (3.8-10.6)
[2023-12-28 08:06] LABS: Lymphocytes # (M) 0.31 k/uL (1.0-4.8); Monocytes # (M) 0.09 k/uL (0-1.0); Neutrophils % (M) 91 %; Nucleated Red Blood Cells 0 /100 WBC (0-0); Target Cells Present; Total Cells Counted 100
[2023-12-28 08:47] LABS: African American GFR (CKD) 31 (>60 ml/min/1.73 sqM); Albumin 3.1 g/dL (3.5-5.0); Alkaline Phosphatase 221 U/L (38-126); Anion Gap 12 mmol/L; Blood Urea Nitrogen 84 mg/dL (9-20); Calcium 8.5 mg/dL (8.4-10.2); Carbon Dioxide 18 mmol/L (22-30); Chloride 105 mmol/L (98-107); Glucose 107 mg/dL (74-99); Non-African American GFR(CKD) 27 (>60 ml/min/1.73 sqM); Potassium 3.7 mmol/L (3.5-5.1); Sodium 135 mmol/L (137-145); Total Bilirubin 2.3 mg/dL (0.2-1.3); Total Protein 6.1 g/dL (6.3-8.2)
[2023-12-28 08:55] LABS: ALT 998 U/L (4-49); AST 992 U/L (17-59)
[2023-12-28] MEDS ORDERED: ZINC OXIDE PASTE (Z-GUARD) 1 APPLIC TOPICAL PRN (12:46)
--- NOTE | 2023-12-28 13:53 | P.CONS ---
History of Present Illness - Reason for Consult Consult date: 12/28/23 Hepatocellular carcinoma - Chief Complaint Altered mental status - History of Present Illness Mr. Slater is a 73-year-old gentleman with a past medical history significant for hepatocellular carcinoma who received 1 cycle of durvalumab/tremelimumab on 11/21/2023 and most recently received cycle 2 of durvalumab alone on 12/19/2023, who presents with altered mental status. Since initiating treatment, he did have elevation in AST/ALT from 255/431 to 787/919 on 12/20/2023. 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 On presentation, vitals noted systolic blood pressures between the 80s and 90s with heart rates in the 50s. Has been saturating between 94 and 98% on 2 L nasal cannula. WBC revealed hemoglobin 9.3 (MCV 100.3), platelets 451, INR 1.4, creatinine 2.52, total bilirubin 2.4, AST 957, ALT 1028, alkaline phosphatase 228, ammonia 47, calcium 8.8. Serum alcohol was negative. Brain CT revealed no acute intracranial process. Chest x-ray revealed no acute cardiopulmonary disease. He was given 1 L bolus of normal saline in addition to lactulose 20 mg x 1. He was admitted to internal medicine for additional management. He was started on normal saline maintenance fluids at 75 cc/hr. He has his daughter and former at bedside (not legal guardians). He denies any pain currently. On questioning, he is A&O x 1-2 (knew he was at a hospital, knew it was 2023), although he does have baseline dementia. Review of Systems Unable to perform review of systems due to encephalopathy Past Medical History Past Medical History: Hypertension Additional Past Medical History / Comment(s): Liver CA History of Any Multi-Drug Resistant Organisms: None Reported Past Surgical History: No Surgical Hx Reported Past Anesthesia/Blood Transfusion Reactions: No Reported Reaction Past Psychological History: Bipolar Smoking Status: Former smoker Past Alcohol Use History: None Reported Past Drug Use History: None Reported Medications and Allergies Home Medications Medication Instructions Recorded Confirmed Type Cholecalciferol [Vitamin D3 (25 50 mcg PO DAILY 08/09/21 12/27/23 History Mcg = 1000 Iu)] Divalproex ER [Depakote ER] 500 mg PO HS 08/09/21 12/27/23 History Gabapentin [Neurontin] 300 mg PO TID 08/09/21 12/27/23 History Multivitamins, Thera [Multivitamin 1 tab PO DAILY 08/09/21 12/27/23 History (formulary)] Naloxone HCl [Narcan] 4 mg NASAL DIRECTED PRN 08/09/21 12/27/23 History Omeprazole [PriLOSEC] 20 mg PO DAILY 08/09/21 12/27/23 History Tamsulosin HCl [Flomax] 0.8 mg PO DAILY 08/09/21 12/27/23 History Triamterene-Hctz 37.5-25Mg 1 tab PO DAILY 08/09/21 12/27/23 History [Maxzide 37.5-25] hydrALAZINE HCL [Apresoline] 50 mg PO TID 08/09/21 12/27/23 History traZODone HCL [Desyrel] 50 mg PO HS 08/09/21 12/27/23 History ARIPiprazole [Abilify] 10 mg PO DAILY 12/27/23 12/27/23 History Atorvastatin [Lipitor] 10 mg PO HS 12/27/23 12/27/23 History Levothyroxine Sodium 25 mcg PO DAILY 12/27/23 12/27/23 History Lidocaine 4% Cream [Lmx 4] 1 applic TOPICAL DAILY 12/27/23 12/27/23 History Lidocaine 5% Patch [Lidoderm] 1 patch TRANSDERM DAILY 12/27/23 12/27/23 History Loperamide [Imodium] 2 mg PO Q6H PRN 12/27/23 12/27/23 History Loperamide [Imodium] 4 mg PO QAM PRN 12/27/23 12/27/23 History Nicotine Polacrilex [Nicotine Gum] 4 mg BUCCAL QID PRN 12/27/23 12/27/23 History Ondansetron [Zofran] 4 mg PO Q12HR PRN 12/27/23 12/27/23 History methocarbamoL 750 mg PO TID 12/27/23 12/27/23 History oxyCODONE HCL [OxyIR] 5 mg PO Q6H PRN 12/27/23 12/27/23 History Allergies Allergy/AdvReac Type Severity Reaction Status Date / Time chocolate flavor Allergy Unknown Verified 12/27/23 18:39 bupropion [From Wellbutrin] AdvReac Seizure Verified 12/27/23 18:39 Physical Exam Vitals: Vital Signs Temp Pulse Pulse Resp BP BP Pulse Ox 12/28/23 09:07 58 L 14 95/56 98 12/28/23 07:33 56 L 16 96/54 98 12/28/23 06:45 58 L 16 86/52 98 12/28/23 04:30 61 16 98/55 99 12/28/23 02:17 59 L 16 95/58 98 12/28/23 00:35 56 L 12 89/57 12/27/23 22:30 57 L 15 97/78 96 12/27/23 20:44 60 18 88/61 12/27/23 18:00 53 L 15 84/53 96 12/27/23 17:00 52 L 17 91/60 12/27/23 14:34 55 L 17 81/58 94 L 12/27/23 13:31 97.5 F L 60 16 85/55 96 Intake and Output 12/27/23 12/28/23 12/28/23 23:59 06:59 14:59 Other: Voiding Method External Catheter Weight 56 kg - Constitutional General appearance: cooperative, no acute distress, thin - Respiratory Nonlabored breathing - Cardiovascular Warm and well-perfused - Gastrointestinal General gastrointestinal: distended, hepatomegaly - Integumentary Integumentary: no rash - Neurologic Alert and oriented x 1-2 (able to state he is at a hospital and knew it was 2023) Results CBC & Chem 7: 12/28/23 06:30 12/28/23 08:13 Labs: Abnormal Lab Results - Last 24 Hours (Table) 12/27/23 12/27/23 12/27/23 Range/Units 13:47 13:47 13:47 RBC 2.94 L (4.30-5.90) m/uL Hgb 9.3 L (13.0-17.5) gm/dL Hct 29.5 L (39.0-53.0) % MCV 100.3 H (80.0-100.0) fL MCHC (31.0-37.0) g/dL RDW 17.3 H (11.5-15.5) % Plt Count 451 H (150-450) k/uL Lymphocytes # 0.2 L (1.0-4.8) k/uL Lymphocytes # (Manual) (1.0-4.8) k/uL PT 14.3 H (10.0-12.5) sec INR 1.4 H (<1.2) APTT 34.6 H (22.0-30.0) sec Sodium 132 L (137-145) mmol/L Carbon Dioxide 19 L (22-30) mmol/L BUN 87 H (9-20) mg/dL Creatinine 2.52 H (0.66-1.25) mg/dL Glucose 116 H (74-99) mg/dL POC Glucose (mg/dL) (70-110) mg/dL Magnesium 2.5 H (1.6-2.3) mg/dL Total Bilirubin 2.4 H (0.2-1.3) mg/dL AST 957 H (17-59) U/L ALT 1028 H (4-49) U/L Alkaline Phosphatase 228 H (38-126) U/L Ammonia (<30) umol/L Total Protein (6.3-8.2) g/dL Albumin 3.3 L (3.5-5.0) g/dL 12/27/23 12/27/23 12/28/23 Range/Units 13:47 13:55 06:30 RBC 3.31 L (4.30-5.90) m/uL Hgb 10.2 L (13.0-17.5) gm/dL Hct 33.2 L (39.0-53.0) % MCV 100.4 H (80.0-100.0) fL MCHC 30.7 L (31.0-37.0) g/dL RDW 17.6 H (11.5-15.5) % Plt Count (150-450) k/uL Lymphocytes # (1.0-4.8) k/uL Lymphocytes # (Manual) 0.31 L (1.0-4.8) k/uL PT (10.0-12.5) sec INR (<1.2) APTT (22.0-30.0) sec Sodium (137-145) mmol/L Carbon Dioxide (22-30) mmol/L BUN (9-20) mg/dL Creatinine (0.66-1.25) mg/dL Glucose (74-99) mg/dL POC Glucose (mg/dL) 129 H (70-110) mg/dL Magnesium (1.6-2.3) mg/dL Total Bilirubin (0.2-1.3) mg/dL AST (17-59) U/L ALT (4-49) U/L Alkaline Phosphatase (38-126) U/L Ammonia 47 H (<30) umol/L Total Protein (6.3-8.2) g/dL Albumin (3.5-5.0) g/dL 12/28/23 Range/Units 08:13 RBC (4.30-5.90) m/uL Hgb (13.0-17.5) gm/dL Hct (39.0-53.0) % MCV (80.0-100.0) fL MCHC (31.0-37.0) g/dL RDW (11.5-15.5) % Plt Count (150-450) k/uL Lymphocytes # (1.0-4.8) k/uL Lymphocytes # (Manual) (1.0-4.8) k/uL PT (10.0-12.5) sec INR (<1.2) APTT (22.0-30.0) sec Sodium 135 L (137-145) mmol/L Carbon Dioxide 18 L (22-30) mmol/L BUN 84 H (9-20) mg/dL Creatinine 2.35 H (0.66-1.25) mg/dL Glucose 107 H (74-99) mg/dL POC Glucose (mg/dL) (70-110) mg/dL Magnesium (1.6-2.3) mg/dL Total Bilirubin 2.3 H (0.2-1.3) mg/dL AST 992 H (17-59) U/L ALT 998 H (4-49) U/L Alkaline Phosphatase 221 H (38-126) U/L Ammonia (<30) umol/L Total Protein 6.1 L (6.3-8.2) g/dL Albumin 3.1 L (3.5-5.0) g/dL Assessment and Plan (1) Hepatocellular carcinoma Current Visit: Yes Status: Acute Code(s): C22.0 - LIVER CELL CARCINOMA SNOMED Code(s): 508534838 (2) Hepatitis Current Visit: Yes Status: Acute Code(s): K75.9 - INFLAMMATORY LIVER DISEASE, UNSPECIFIED SNOMED Code(s): 932138463 (3) Hepatic encephalopathy Current Visit: Yes Status: Acute Code(s): K76.82 - HEPATIC ENCEPHALOPATHY SNOMED Code(s): 41922550 (4) Normocytic anemia Current Visit: Yes Status: Acute Code(s): D64.9 - ANEMIA, UNSPECIFIED SNOMED Code(s): 634988657 (5) Thrombocytosis Current Visit: Yes Status: Acute Code(s): D75.839 - THROMBOCYTOSIS, UNSPECIFIED SNOMED Code(s): 3428305 Plan: #Hepatic encephalopathy, hepatitis -Presented with altered mental status along with elevations in AST/ALT and total bilirubin -He has received durvalumab/tremelimumab immunotherapy for hepatocellular carcinoma and most recently received durvalumab alone on 12/19/2023 -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/2023 and was started on levothyroxine -It is not clear if the elevations in hepatocellular enzymes and total bilirubin are related to disease progression or possible complication from immunotherapy -Thyroid profile and AFP ordered today -We did discuss IV methylprednisolone to assess whether this is reversible or not secondary to checkpoint inhibitor induced hepatitis -Following discussion, family at bedside was agreeable to proceed with this -Clinically, I do think this is reasonable #Anemia, thrombocytosis -Normocytic anemia with hemoglobin ranging in the 9-10 range with thrombocytosis -This could be anemia of inflammation due to underlying liver disease, but cannot exclude nutritional etiologies -Iron studies, vitamin B12/methylmalonic acid, and folic acid ordered today #Hepatocellular carcinoma -Received cycle 1 of durvalumab/durvalumab on 11/21/2023 -Received durvalumab alone on 12/19/2023 -AFP ordered in addition to labs mentioned above -IV 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
[2023-12-28 14:33] LABS: Appearance,Urine Cloudy (Clear); Bacteria,Urine Rare /hpf; Bilirubin,Urine Negative (Negative); Blood,Urine Negative (Negative); Color,Urine Yellow; Glucose,Urine (UA) Negative (Negative); Ketones,Urine Negative (Negative); Leukocyte Esterase,Urine Negative (Negative); Mucus,Urine Rare /hpf; Nitrite,Urine Negative (Negative); PH, Urine 5.5 (5.0-8.0); Protein,Urine 1+ (Negative); RBC,Urine <1 /hpf (0-5); Specific Gravity,Urine 1.012 (1.001-1.035); Urobilinogen,Urine <2.0 mg/dL (<2.0); WBC,Urine 1 /hpf (0-5)
[2023-12-28 14:44] LABS: Amphetamine Screen,Urine Not Detected (NotDetected); Barbiturate Screen,Urine Not Detected (NotDetected); Benzodiazepines Screen,Urine Not Detected (NotDetected); Cocaine Screen,Urine Not Detected (NotDetected); Methadone Screen, Urine Not Detected (NotDetected); Opiate Screen,Urine Not Detected (NotDetected); Oxycodone Screen, Urine Detected (NotDetected); Phencyclidine Screen,Urine Not Detected (NotDetected); Tricyclic Antidepressant,Urine Not Detected (NotDetected); Urn Cannabinoid Scrn Not Detected (NotDetected)
[2023-12-28] MEDS ORDERED: LOPERAMIDE 2 MG CAP PO PRN (14:49)
--- NOTE | 2023-12-28 14:53 | P.PN ---
Subjective Progress Note Date: 12/28/23 Patient is a 73-year-old male with a past medical history of stage IV lung cancer currently on chemotherapy, hypertension, bipolar disorder who was brought in by EMS for altered mental status. Patient is a poor historian so unable to obtain history from the patient. Patient daughter was at bedside who is not the legal guardian. She states that patient did get chemotherapy about 1 month ago. She states that he saw his oncologist a few days ago and did get IV fluids which seemed to help. She states that her father has not been eating and drinking much. She also states that her father is taking oxycodone for pain control. She states that he walks with a shuffling gait without using a walker. She states that she was with him at his appointments at [facility] and she was told by the doctors that there is no cure for his cancer and that this is all palliative care. Patient performed a was seen by oncology who started the patient on steroids with IV Solu-Medrol 125 mg daily. Per oncology if no improvement in patient's mental status in 24 to 48 hours then we will recommend hospice. This morning patient told me that he has back pain. I did tell the patient that for now we will holding off on his pain medication due to his confusion as well as dehydration. I did tell the patient that if pain was his main issue then he should consider hospice. Patient agreed to hospice. However at this time patient does not have the capacity to make his own decisions. I spoke to the daughter at bedside who is the guardian. Daughter agrees that patient should be hospice. However she does not feel that the patient should return to his previous facility as he will not get enough care there. I have also spoken to the guardian as well who states that patient has been rapidly declining and also believes that hospice is the best option. She states that she was discussed with hematology tomorrow. Physical exam General examination - Alert and Oriented 2 in NAD, appears malnourished and chronically debilitated Heart - + S1S2 no murmurs Lungs - Clear to auscultation Abdomen distended Extremities - No edema [employer] -patient following simple commands Psych -somnolent and lethargic Assessment and plan Acute metabolic encephalopathy secondary to polypharmacy and acute kidney injury I suspect patient is dehydrated which increased the potency of his pain medications causing the encephalopathy. I reviewed CT head that was unremarkable. Continue with normal saline at 75 cc an hour. Ammonia level is 47. I doubt this is the cause of patient's encephalopathy. I will hold off on the lactulose as it can worsen patient's dehydration. Will hold all sedating medications including patient's pain medications. Acute kidney injury secondary to dehydration and hypovolemia Dehydration and hypovolemia Creatinine baseline is around 1.8 Continue with IV fluids Creatinine this morning is 2.35 which improved from 2.5 to Trend BMP Stage IV liver cancer Hepatitis I reviewed oncology note who believes the patient may have hepatitis due to the immunotherapy. Oncology started the patient on IV Solu-Medrol 125 mg daily Patient daughter and guardian are open to hospice. Guardian would like to speak with the oncologist first. Ascites Secondary to metastasis Will consult IR Transaminitis and hyperbilirubinemia secondary to liver cancer This morning AST is 992, ALT 998 and alkaline phosphatase 221 which is stable from labs done on admission. Bilirubin is 2.3 which again is stable. Hold atorvastatin Bipolar disorder Continue with Depakote 5 mg at bedtime and Abilify 10 mg p.o. daily Immunotherapy induced hypothyroidism Continue with levothyroxine 25 mcg p.o. daily Hypertension Hold off on BP meds due to low blood pressure DVT prophylaxis: Hold off on subcu heparin as I am not sure if patient has brain metastasis. Poor prognosis. Full code Objective - Vital Signs Vital signs: Vital Signs Temp 97.5 F L 12/27/23 13:31 Pulse 59 L 12/28/23 12:23 Resp 14 12/28/23 12:23 BP 93/53 12/28/23 12:23 Pulse Ox 98 12/28/23 12:23 FiO2 Intake & Output 12/27/23 12/28/23 12/28/23 19:59 06:59 18:59 Weight 56 kg Other: Voiding Method External Catheter # Bowel Movements 1 - Labs CBC & Chem 7: 12/28/23 06:30 12/28/23 08:13 Labs: Abnormal Lab Results - Last 24 Hours (Table) 12/28/23 12/28/23 12/28/23 Range/Units 06:30 08:13 14:11 RBC 3.31 L (4.30-5.90) m/uL Hgb 10.2 L (13.0-17.5) gm/dL Hct 33.2 L (39.0-53.0) % MCV 100.4 H (80.0-100.0) fL MCHC 30.7 L (31.0-37.0) g/dL RDW 17.6 H (11.5-15.5) % Lymphocytes # (Manual) 0.31 L (1.0-4.8) k/uL Sodium 135 L (137-145) mmol/L Carbon Dioxide 18 L (22-30) mmol/L BUN 84 H (9-20) mg/dL Creatinine 2.35 H (0.66-1.25) mg/dL Glucose 107 H (74-99) mg/dL Total Bilirubin 2.3 H (0.2-1.3) mg/dL AST 992 H (17-59) U/L ALT 998 H (4-49) U/L Alkaline Phosphatase 221 H (38-126) U/L Total Protein 6.1 L (6.3-8.2) g/dL Albumin 3.1 L (3.5-5.0) g/dL Urine Protein 1+ H (Negative) Urine Bacteria Rare H (None) /hpf Urine Mucus Rare H (None) /hpf Ur Oxycodone Screen Detected H (NotDetected)
[2023-12-28] MEDS: LEVOTHYROXINE 25 MCG TAB PO SCH (15:24)
[2023-12-28] MEDS: methylPREDNISolone SOD SUCCI 125 MG/2 ML VIAL IV SCH (15:25)
[2023-12-28] MEDS: NICOTINE 7MG/24HR PATCH TRANSDERM SCH (17:02)
[2023-12-28] MEDS: DIVALPROEX ER 500 MG TAB.ER.24H PO SCH (20:35)
[2023-12-28 23:11] LABS: Iron 97 UG/DL (65-175); Total Iron Binding Capacity 172 UG/DL (228-460)
[2023-12-28 23:40] LABS: Vitamin B12 >3600.0 pg/mL (200.0-944.0)
[2023-12-29] MEDS: ARIPiprazole 10 MG TAB PO SCH (08:04)
[2023-12-29 08:20] LABS: Basophils # (A) 0 X 10*3/uL (0.00-0.10); Basophils % (A) 0 %; Eosinophils # (A) 0.01 X 10*3/uL (0.04-0.35); Eosinophils % (A) 0.2 %; HCT 28.7 % (39.6-50.0); HGB 9.7 g/dL (13.0-17.0); Lymphocytes % (A) 6.6 %; MCH 30.8 pg (27.0-32.0); MCHC 33.8 g/dL (32.0-37.0); MCV 91.1 FL (80.0-97.0); Mean Platelet Volume 11.9 FL (9.5-12.2); Monocytes # (A) 0.15 X 10*3/uL (0.20-1.00); Monocytes % (A) 3.3 %; NRBC Per 100 WBC 0 X 10*3/uL (0.00-0.01); Neutrophils # (A) 4.06 X 10*3/uL (1.80-7.70); Neutrophils % (A) 89.7 %; Platelet Count 475 X 10*3/uL (140-440); RBC 3.15 X 10*6/uL (4.40-5.60); RDW 20.2 % (11.5-14.5); WBC 4.53 X 10*3/uL (4.50-10.00)
[2023-12-29 09:52] LABS: ALT 1107 U/L (10-49); AST 973 U/L (14-35); Albumin 3.1 g/dL (3.8-4.9); Alkaline Phosphatase 257 U/L (41-126); BUN/Creat Ratio 35.73 Ratio (12.00-20.00); Blood Urea Nitrogen 78.6 mg/dL (9.0-27.0); Calcium 8.7 mg/dL (8.7-10.3); Carbon Dioxide 18.7 mmol/L (21.6-31.8); Chloride 103 mmol/L (96-109); Globulin 3.1 g/dL (1.6-3.3); Glucose 106 mg/dL (70-110); Potassium 4.2 mmol/L (3.5-5.5); Sodium 136 mmol/L (135-145); Total Protein 6.2 g/dL (6.2-8.2)
[2023-12-29 11:13] VITALS: BMI 19.3
--- NOTE | 2023-12-29 11:17 | P.PN ---
Subjective Progress Note Date: 12/29/23 No acute changes, pt lethargic. Persisting hyperbilirubnemia and transaminitis. Kidney function slowly improving Objective - Vital Signs Vital signs: Vital Signs Temp 97.9 F 12/29/23 07:16 Pulse 57 L 12/29/23 07:16 Resp 20 12/29/23 07:16 BP 97/56 12/29/23 07:16 Pulse Ox 90 L 12/29/23 07:16 FiO2 Intake & Output 12/28/23 12/29/23 12/29/23 18:59 06:59 18:59 Output Total 25 500 Balance -25 -500 Weight 56 kg Output: Urine 25 500 Other: Voiding Method External Catheter External Catheter External Catheter # Bowel Movements 1 2 - Constitutional General appearance: Present: no acute distress, thin - Respiratory Details: breathing even and unlabored - Gastrointestinal General gastrointestinal: Present: hepatomegaly. Absent: tenderness - Neurologic Neurologic Comment(s): lethargic - Musculoskeletal Musculoskeletal: Present: generalized weakness - Labs CBC & Chem 7: 12/29/23 05:09 12/29/23 05:09 Labs: Abnormal Lab Results - Last 24 Hours (Table) 12/28/23 12/28/23 12/29/23 Range/Units 08:13 14:11 05:09 RBC 3.15 L (4.40-5.60) X 10*6/uL Hgb 9.7 L (13.0-17.0) g/dL Hct 28.7 L (39.6-50.0) % RDW 20.2 H (11.5-14.5) % Plt Count 475 H (140-440) X 10*3/uL Lymphocytes # 0.30 L (0.90-5.00) X 10*3/uL Monocytes # 0.15 L (0.20-1.00) X 10*3/uL Eosinophils # 0.01 L (0.04-0.35) X 10*3/uL Carbon Dioxide (21.6-31.8) mmol/L Anion Gap (4.00-12.00) mmol/L BUN (9.0-27.0) mg/dL Creatinine (0.6-1.5) mg/dL Est GFR (CKD-EPI) (>=60) BUN/Creatinine Ratio (12.00-20.00) Ratio TIBC 172 L (228-460) UG/DL % Saturation 56.40 H (15.00-50.00) Transferrin 123.0 L (204.0-354.0) mg/dL Ferritin 1409.0 H (22.0-322.0) ng/mL Total Bilirubin (0.3-1.2) mg/dL AST (14-35) U/L ALT (10-49) U/L Alkaline Phosphatase (41-126) U/L Albumin (3.8-4.9) g/dL Albumin/Globulin Ratio (1.60-3.17) Ratio Vitamin B12 >3600.0 H (200.0-944.0) pg/mL Urine Protein 1+ H (Negative) Urine Bacteria Rare H (None) /hpf Urine Mucus Rare H (None) /hpf Ur Oxycodone Screen Detected H (NotDetected) 12/29/23 Range/Units 05:09 RBC (4.40-5.60) X 10*6/uL Hgb (13.0-17.0) g/dL Hct (39.6-50.0) % RDW (11.5-14.5) % Plt Count (140-440) X 10*3/uL Lymphocytes # (0.90-5.00) X 10*3/uL Monocytes # (0.20-1.00) X 10*3/uL Eosinophils # (0.04-0.35) X 10*3/uL Carbon Dioxide 18.7 L (21.6-31.8) mmol/L Anion Gap 14.30 H (4.00-12.00) mmol/L BUN 78.6 H (9.0-27.0) mg/dL Creatinine 2.2 H (0.6-1.5) mg/dL Est GFR (CKD-EPI) 31 L (>=60) BUN/Creatinine Ratio 35.73 H (12.00-20.00) Ratio TIBC (228-460) UG/DL % Saturation (15.00-50.00) Transferrin (204.0-354.0) mg/dL Ferritin (22.0-322.0) ng/mL Total Bilirubin 2.0 H (0.3-1.2) mg/dL AST 973 H (14-35) U/L ALT 1107 H (10-49) U/L Alkaline Phosphatase 257 H (41-126) U/L Albumin 3.1 L (3.8-4.9) g/dL Albumin/Globulin Ratio 1.00 L (1.60-3.17) Ratio Vitamin B12 (200.0-944.0) pg/mL Urine Protein (Negative) Urine Bacteria (None) /hpf Urine Mucus (None) /hpf Ur Oxycodone Screen (NotDetected) Assessment and Plan (1) Hepatic encephalopathy Current Visit: Yes Status: Acute Priority: High Code(s): K76.82 - HEPATIC ENCEPHALOPATHY SNOMED Code(s): 12225512 (2) Hepatocellular carcinoma Current Visit: Yes Status: Acute Priority: High Code(s): C22.0 - LIVER CELL CARCINOMA SNOMED Code(s): 255965804 (3) Normocytic anemia Current Visit: Yes Status: Acute Priority: Medium Code(s): D64.9 - ANEMIA, UNSPECIFIED SNOMED Code(s): 749224874 (4) Uremic encephalopathy Current Visit: Yes Status: Acute Priority: High Code(s): G93.49 - OTHER ENCEPHALOPATHY; N19 - UNSPECIFIED KIDNEY FAILURE SNOMED Code(s): 95704571 Plan: #Hepatic encephalopathy, hepatitis -Presented with altered mental status along with elevations in AST/ALT and total bilirubin -He has received durvalumab/tremelimumab immunotherapy for hepatocellular carcinoma and most recently received durvalumab alone on 12/19/2023 -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/2023 and was started on levothyroxine -It is not clear if the elevations in hepatocellular enzymes and total bilirubin are related to disease progression or possible complication from immunotherapy -Thyroid profile and AFP ordered today -We did discuss IV methylprednisolone to assess whether this is reversible or not secondary to checkpoint inhibitor induced hepatitis -Following discussion, family at bedside was agreeable to proceed with this -Clinically, I do think this is reasonable #Anemia, thrombocytosis -Normocytic anemia with hemoglobin ranging in the 9-10 range with thrombocytosis -This could be anemia of inflammation due to underlying liver disease, but cannot exclude nutritional etiologies -Iron studies, vitamin B12/methylmalonic acid, and folic acid ordered, no nutritional deficiencies noted #Hepatocellular carcinoma -Received cycle 1 of durvalumab/tremelimumab on 11/21/2023 -Received durvalumab alone on 12/19/2023 -AFP ordered in addition to labs mentioned above -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 Discussed with dictator. I agree with dictators note, documented as a scribe.
--- NOTE | 2023-12-29 14:28 | P.PN ---
Subjective Progress Note Date: 12/29/23 Patient is a 73-year-old male with a past medical history of stage IV lung cancer currently on chemotherapy, hypertension, bipolar disorder who was brought in by EMS for altered mental status. Patient is a poor historian so unable to obtain history from the patient. Patient daughter was at bedside who is not the legal guardian. She states that patient did get chemotherapy about 1 month ago. She states that he saw his oncologist a few days ago and did get IV fluids which seemed to help. She states that her father has not been eating and drinking much. She also states that her father is taking oxycodone for pain control. She states that he walks with a shuffling gait without using a walker. She states that she was with him at his appointments at [facility] and she was told by the doctors that there is no cure for his cancer and that this is all palliative care. Patient performed a was seen by oncology who started the patient on steroids with IV Solu-Medrol 125 mg daily. Per oncology if no improvement in patient's mental status in 24 to 48 hours then we will recommend hospice. 12/28 Patient was seen and examined. Moaning and groaning. Lethargic. Attempted to call guardian awaiting call back. Patient would benefit from hospice at this time. CBC and CMP significant for RBC 3.15, Hg 9.7, Hct 28.7, Plt 475, bicarb 18.7, AG 14.3, BUN 78.6, Cr 2.2, T. Bili 2, AST 973, ALT 1107, alk phos 257, alb 3.1. 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 I reviewed CT head that was unremarkable. Continue with normal saline at 75 cc an hour. Ammonia level is 47. I doubt this is the cause of patient's encephalopathy. I will hold off on the lactulose as it can worsen patient's dehydration. Will hold all sedating medications including patient's pain medications. Acute kidney injury secondary to dehydration and hypovolemia Dehydration and hypovolemia Creatinine baseline is around 1.8 Continue with IV fluids Creatinine this morning is 2.2 which improved from 2.52 Trend BMP Stage IV liver cancer Hepatitis I reviewed oncology note who believes the patient may have hepatitis due to the immunotherapy. Oncology started the patient on IV Solu-Medrol 125 mg daily Attempt to call guardian regarding hospice, awaiting call back. Ascites Secondary to metastasis Discuss with guardian prior to proceeding. Transaminitis and hyperbilirubinemia secondary to liver cancer This morning T. Bili 2, AST 973, ALT 1107 which is stable from labs done on admission. Hold atorvastatin Bipolar disorder Continue with Depakote 5 mg at bedtime and Abilify 10 mg p.o. daily Immunotherapy induced hypothyroidism Continue with levothyroxine 25 mcg p.o. daily Hypertension Hold off on BP meds due to low blood pressure DVT prophylaxis: Hold off on subcu heparin as I am not sure if patient has brain metastasis. Poor prognosis. Full code Objective - Vital Signs Vital signs: Vital Signs Temp 96.8 F L 12/29/23 12:52 Pulse 61 12/29/23 12:52 Resp 20 12/29/23 12:52 BP 104/64 12/29/23 12:52 Pulse Ox 92 L 12/29/23 12:52 FiO2 Intake & Output 12/28/23 12/29/23 12/29/23 18:59 06:59 18:59 Output Total 25 500 Balance -25 -500 Weight 56 kg 56 kg Output: Urine 25 500 Other: Voiding Method External Catheter External Catheter External Catheter # Bowel Movements 1 2 - Labs CBC & Chem 7: 12/29/23 05:09 12/29/23 05:09 Labs: Abnormal Lab Results - Last 24 Hours (Table) 12/28/23 12/28/23 12/29/23 Range/Units 08:13 14:11 05:09 RBC 3.15 L (4.40-5.60) X 10*6/uL Hgb 9.7 L (13.0-17.0) g/dL Hct 28.7 L (39.6-50.0) % RDW 20.2 H (11.5-14.5) % Plt Count 475 H (140-440) X 10*3/uL Lymphocytes # 0.30 L (0.90-5.00) X 10*3/uL Monocytes # 0.15 L (0.20-1.00) X 10*3/uL Eosinophils # 0.01 L (0.04-0.35) X 10*3/uL Carbon Dioxide (21.6-31.8) mmol/L Anion Gap (4.00-12.00) mmol/L BUN (9.0-27.0) mg/dL Creatinine (0.6-1.5) mg/dL Est GFR (CKD-EPI) (>=60) BUN/Creatinine Ratio (12.00-20.00) Ratio TIBC 172 L (228-460) UG/DL % Saturation 56.40 H (15.00-50.00) Transferrin 123.0 L (204.0-354.0) mg/dL Ferritin 1409.0 H (22.0-322.0) ng/mL Total Bilirubin (0.3-1.2) mg/dL AST (14-35) U/L ALT (10-49) U/L Alkaline Phosphatase (41-126) U/L Albumin (3.8-4.9) g/dL Albumin/Globulin Ratio (1.60-3.17) Ratio Vitamin B12 >3600.0 H (200.0-944.0) pg/mL Urine Protein 1+ H (Negative) Urine Bacteria Rare H (None) /hpf Urine Mucus Rare H (None) /hpf Ur Oxycodone Screen Detected H (NotDetected) 12/29/23 Range/Units 05:09 RBC (4.40-5.60) X 10*6/uL Hgb (13.0-17.0) g/dL Hct (39.6-50.0) % RDW (11.5-14.5) % Plt Count (140-440) X 10*3/uL Lymphocytes # (0.90-5.00) X 10*3/uL Monocytes # (0.20-1.00) X 10*3/uL Eosinophils # (0.04-0.35) X 10*3/uL Carbon Dioxide 18.7 L (21.6-31.8) mmol/L Anion Gap 14.30 H (4.00-12.00) mmol/L BUN 78.6 H (9.0-27.0) mg/dL Creatinine 2.2 H (0.6-1.5) mg/dL Est GFR (CKD-EPI) 31 L (>=60) BUN/Creatinine Ratio 35.73 H (12.00-20.00) Ratio TIBC (228-460) UG/DL % Saturation (15.00-50.00) Transferrin (204.0-354.0) mg/dL Ferritin (22.0-322.0) ng/mL Total Bilirubin 2.0 H (0.3-1.2) mg/dL AST 973 H (14-35) U/L ALT 1107 H (10-49) U/L Alkaline Phosphatase 257 H (41-126) U/L Albumin 3.1 L (3.8-4.9) g/dL Albumin/Globulin Ratio 1.00 L (1.60-3.17) Ratio Vitamin B12 (200.0-944.0) pg/mL Urine Protein (Negative) Urine Bacteria (None) /hpf Urine Mucus (None) /hpf Ur Oxycodone Screen (NotDetected)
[2023-12-29] MEDS: HYDROcodone/APAP 15 ML SOLUTION PO ONE (18:36)
[2023-12-30] MEDS: FUROSEMIDE 10 MG/ML 4 ML VIAL IV STA (03:16)
--- NOTE | 2023-12-30 04:39 | XR ---
EXAM: XR Chest, 1 View CLINICAL HISTORY: ITS.REASON XR Reason: chf TECHNIQUE: Frontal view of the chest. COMPARISON: No relevant prior studies available. IMPRESSION: Increased right lung opacity.
[2023-12-30 06:31] LABS: Anisocytosis Slight; Basophils % (A) 0 %; Eosinophils % (A) 0 %; HCT 32.7 % (39.0-53.0); Hypochromasia Marked; Lymphocytes # (A) 1.5 k/uL (1.0-4.8); Lymphocytes % (A) 58 %; MCHC 30.6 g/dL (31.0-37.0); MCV 101.2 fL (80.0-100.0); Macrocytosis Slight; Mean Platelet Volume 9.1; Monocytes # (A) 0.1 k/uL (0-1.0); Monocytes % (A) 2 %; Neutrophils % (A) 38 %; Platelet Count 431 k/uL (150-450); RBC 3.23 m/uL (4.30-5.90); RDW 17.4 % (11.5-15.5); WBC 2.5 k/uL (3.8-10.6)
[2023-12-30 09:06] LABS: ALT 1088 U/L (10-49); AST 911 U/L (14-35); Albumin 3.1 g/dL (3.8-4.9); Albumin/Globulin Ratio 1.03 Ratio (1.60-3.17); Alkaline Phosphatase 257 U/L (41-126); BUN/Creat Ratio 39.05 Ratio (12.00-20.00); Blood Urea Nitrogen 74.2 mg/dL (9.0-27.0); Calcium 8.5 mg/dL (8.7-10.3); Carbon Dioxide 17.2 mmol/L (21.6-31.8); Chloride 108 mmol/L (96-109); Glucose 95 mg/dL (70-110); Potassium 3.4 mmol/L (3.5-5.5); Sodium 140 mmol/L (135-145); Total Bilirubin 2.2 mg/dL (0.3-1.2); Total Protein 6.1 g/dL (6.2-8.2)
[2023-12-30] MEDS: PIPERACILLIN-TAZOBACTAM 3.375 GM in SODIUM CHLORIDE 0.9% 100 ML IVPB SCH (10:27)
--- NOTE | 2023-12-30 17:05 | P.PN ---
Subjective Progress Note Date: 12/30/23 Patient is a 73-year-old male with a past medical history of stage IV lung cancer currently on chemotherapy, hypertension, bipolar disorder who was brought in by EMS for altered mental status. Patient is a poor historian so unable to obtain history from the patient. Patient daughter was at bedside who is not the legal guardian. She states that patient did get chemotherapy about 1 month ago. She states that he saw his oncologist a few days ago and did get IV fluids which seemed to help. She states that her father has not been eating and drinking much. She also states that her father is taking oxycodone for pain control. She states that he walks with a shuffling gait without using a walker. She states that she was with him at his appointments at [facility] and she was told by the doctors that there is no cure for his cancer and that this is all palliative care. Patient performed a was seen by oncology who started the patient on steroids with IV Solu-Medrol 125 mg daily. Per oncology if no improvement in patient's mental status in 24 to 48 hours then we will recommend hospice. 12/29 Patient was seen and examined. Moaning and groaning. Lethargic. Currently on non rebreather. CBC and CMP significant for RBC 2.5, RBC 3.23, Hg 10, Hct 32.7, MCV 101.2, K 3.4, bicarb 17.2, AG 14.8, BUN 74.2, Cr 1.9, Ca 8.5, T. Bili 2.2, AST 911, ALT 1088, alk phos 257, alb 3.1. 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 NPO. Supplemental O2 to maintain O2 saturation > 92% Acute metabolic encephalopathy secondary to polypharmacy and acute kidney injury I suspect patient is dehydrated which increased the potency of his pain medications causing the encephalopathy. I reviewed CT head that was unremarkable. Continue with normal saline at 75 cc an hour. Ammonia level is 47. I doubt this is the cause of patient's encephalopathy. I will hold off on the lactulose as it can worsen patient's dehydration. Will hold all sedating medications including patient's pain medications. Acute kidney injury secondary to dehydration and hypovolemia Dehydration and hypovolemia Creatinine baseline is around 1.8 Continue with IV fluids Creatinine this morning is 1.9 which improved from 2.52 Trend BMP Stage IV liver cancer Hepatitis I reviewed oncology note who believes the patient may have hepatitis due to the immunotherapy. Oncology started the patient on IV Solu-Medrol 125 mg daily Ascites Secondary to metastasis Discuss with guardian prior to proceeding. Transaminitis and hyperbilirubinemia secondary to liver cancer This morning T. Bili 2.2, AST 911, ALT 1088, alk phos 257 which is stable from labs done on admission. Hold atorvastatin Bipolar disorder Continue with Depakote 5 mg at bedtime and Abilify 10 mg p.o. daily Immunotherapy induced hypothyroidism Continue with levothyroxine 25 mcg p.o. daily Hypertension Hold off on BP meds due to low blood pressure DVT prophylaxis: Hold off on subcu heparin as I am not sure if patient has brain metastasis. Poor prognosis. Full code Family and guardian to have family meeting tomorrow to determine CODE status and need for hospice/comfort care. Objective - Vital Signs Vital signs: Vital Signs Temp 98.4 F 12/30/23 13:01 Pulse 74 12/30/23 13:01 Resp 16 12/30/23 13:01 BP 106/65 12/30/23 13:01 Pulse Ox 99 12/30/23 13:01 FiO2 Intake & Output 12/29/23 12/30/23 12/30/23 18:59 06:59 18:59 Intake Total 120 Output Total 700 600 400 Balance -700 -480 -400 Weight 56 kg Intake: Oral 120 Output: Urine 700 600 400 Other: Voiding Method External Catheter External Catheter External Catheter # Bowel Movements 1 - Labs CBC & Chem 7: 12/30/23 05:48 12/30/23 05:48 Labs: Abnormal Lab Results - Last 24 Hours (Table) 12/30/23 12/30/23 Range/Units 05:48 05:48 WBC 2.5 L (3.8-10.6) k/uL RBC 3.23 L (4.30-5.90) m/uL Hgb 10.0 L (13.0-17.5) gm/dL Hct 32.7 L (39.0-53.0) % MCV 101.2 H (80.0-100.0) fL MCHC 30.6 L (31.0-37.0) g/dL RDW 17.4 H (11.5-15.5) % Neutrophils # 1.0 L (1.3-7.7) k/uL Potassium 3.4 L (3.5-5.5) mmol/L Carbon Dioxide 17.2 L (21.6-31.8) mmol/L Anion Gap 14.80 H (4.00-12.00) mmol/L BUN 74.2 H (9.0-27.0) mg/dL Creatinine 1.9 H (0.6-1.5) mg/dL Est GFR (CKD-EPI) 37 L (>=60) BUN/Creatinine Ratio 39.05 H (12.00-20.00) Ratio Calcium 8.5 L (8.7-10.3) mg/dL Total Bilirubin 2.2 H (0.3-1.2) mg/dL AST 911 H (14-35) U/L ALT 1088 H (10-49) U/L Alkaline Phosphatase 257 H (41-126) U/L Total Protein 6.1 L (6.2-8.2) g/dL Albumin 3.1 L (3.8-4.9) g/dL Albumin/Globulin Ratio 1.03 L (1.60-3.17) Ratio
--- NOTE | 2023-12-30 17:52 | P.PN ---
Subjective Progress Note Date: 12/30/23 Pt very lethargic, easily falling asleep during conversation. Persisting hyperbilirubnemia and transaminitis. Kidney function slowly improving. Pt was transitioned to NRB 15L due to hypoxia Objective - Vital Signs Vital signs: Vital Signs Temp 97.5 F L 12/30/23 02:00 Pulse 69 12/30/23 07:04 Resp 18 12/30/23 07:04 BP 113/74 12/30/23 07:04 Pulse Ox 99 12/30/23 07:04 FiO2 Intake & Output 12/29/23 12/30/23 12/30/23 18:59 06:59 18:59 Intake Total 120 Output Total 700 600 Balance -700 -480 Weight 56 kg Intake: Oral 120 Output: Urine 700 600 Other: Voiding Method External Catheter External Catheter # Bowel Movements 1 - Constitutional General appearance: Present: no acute distress, thin - Respiratory Details: breathing even and unlabored - Cardiovascular Details: skin warm and dry - Integumentary Integumentary: Absent: cyanotic - Musculoskeletal Musculoskeletal: Present: generalized weakness - Psychiatric Psychiatric Comment(s): lethargic - Labs CBC & Chem 7: 12/30/23 05:48 12/30/23 05:48 Labs: Abnormal Lab Results - Last 24 Hours (Table) 12/30/23 12/30/23 Range/Units 05:48 05:48 WBC 2.5 L (3.8-10.6) k/uL RBC 3.23 L (4.30-5.90) m/uL Hgb 10.0 L (13.0-17.5) gm/dL Hct 32.7 L (39.0-53.0) % MCV 101.2 H (80.0-100.0) fL MCHC 30.6 L (31.0-37.0) g/dL RDW 17.4 H (11.5-15.5) % Neutrophils # 1.0 L (1.3-7.7) k/uL Potassium 3.4 L (3.5-5.5) mmol/L Carbon Dioxide 17.2 L (21.6-31.8) mmol/L Anion Gap 14.80 H (4.00-12.00) mmol/L BUN 74.2 H (9.0-27.0) mg/dL Creatinine 1.9 H (0.6-1.5) mg/dL Est GFR (CKD-EPI) 37 L (>=60) BUN/Creatinine Ratio 39.05 H (12.00-20.00) Ratio Calcium 8.5 L (8.7-10.3) mg/dL Total Bilirubin 2.2 H (0.3-1.2) mg/dL AST 911 H (14-35) U/L ALT 1088 H (10-49) U/L Alkaline Phosphatase 257 H (41-126) U/L Total Protein 6.1 L (6.2-8.2) g/dL Albumin 3.1 L (3.8-4.9) g/dL Albumin/Globulin Ratio 1.03 L (1.60-3.17) Ratio Assessment and Plan (1) Hepatic encephalopathy Current Visit: Yes Status: Acute Priority: High Code(s): K76.82 - HEPATIC ENCEPHALOPATHY SNOMED Code(s): 22260828 (2) Hepatocellular carcinoma Current Visit: Yes Status: Acute Priority: High Code(s): C22.0 - LIVER CELL CARCINOMA SNOMED Code(s): 508930404 (3) Normocytic anemia Current Visit: Yes Status: Acute Priority: Medium Code(s): D64.9 - ANEMIA, UNSPECIFIED SNOMED Code(s): 176666812 (4) Uremic encephalopathy Current Visit: Yes Status: Acute Priority: High Code(s): G93.49 - OTHER ENCEPHALOPATHY; N19 - UNSPECIFIED KIDNEY FAILURE SNOMED Code(s): 81662316 Plan: #Hepatic encephalopathy, hepatitis -Presented with altered mental status along with elevations in AST/ALT and total bilirubin -He has received durvalumab/tremelimumab immunotherapy for hepatocellular carcinoma and most recently received durvalumab alone on 12/19/2023 -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/2023 and was started on levothyroxine -It is not clear if the elevations in hepatocellular enzymes and total bilirubin are related to disease progression or possible complication from immunotherapy -We did discuss IV methylprednisolone to assess whether this is reversible or not secondary to checkpoint inhibitor induced hepatitis -Following discussion, family at bedside was agreeable to proceed with this -Clinically, I do think this is reasonable #Anemia, thrombocytosis -Normocytic anemia with hemoglobin ranging in the 9-10 range with thrombocytosis -This could be anemia of inflammation due to underlying liver disease, but c annot exclude nutritional etiologies -Iron studies, vitamin B12/methylmalonic acid, and folic acid ordered, with no nutritional deficiencies noted. TSH WNL #Hepatocellular carcinoma -Received cycle 1 of durvalumab/tremelimumab on 11/21/2023 -Received durvalumab alone on 12/19/2023 -IV methylprednisolone ordered for checkpoint inhibitor induced hepatitis. -If he shows no signs of clinical improvement over the next 24 to 48 hours, I do believe hospice is appropriate -Unfortunately there has been no noted improvement with IV steroids, and patient clinical condition has continued to worsen -Case was discussed with legal guardian Consuelo. We discussed above findings, and recommendations for hospice and changing code status to DNR, she was agreeable to the same, however, would like to have family meeting to have this discussion with family present before making changes to code status and placing hospice referral. Family meeting scheduled for tomorrow morning at 10:15. Spoke with primary RN and updated her on plan, she will call family regarding the same Doctor attests: I performed a history and physical examination of this patient, developed impression and plan of care. Discussed with dictator. I agree with dictators note, documented as a scribe.
[2023-12-30] MEDS: ACETAMINOPHEN IV (For NPO) 1,000 MG in EMPTY BAG 1 BAG IVPB ONE (18:16)
[2023-12-31 07:35] VITALS: RESP 18
[2023-12-31] MEDS: HEPARIN SODIUM,PORCINE 5,000 UNIT/ML 1 ML VIAL SQ SCH (08:58)
[2023-12-31] MEDS: DEXTROSE 5%-0.9% NACL 1,000 ML IV SCH (08:58)
[2023-12-31 09:14] LABS: African American GFR (CKD) 32 (>60 ml/min/1.73 sqM); Albumin 2.9 g/dL (3.5-5.0); Alkaline Phosphatase 222 U/L (38-126); Anion Gap 11 mmol/L; Blood Urea Nitrogen 80 mg/dL (9-20); Calcium 8.3 mg/dL (8.4-10.2); Carbon Dioxide 20 mmol/L (22-30); Chloride 113 mmol/L (98-107); Globulin 2.8 g/dL; Glucose 83 mg/dL (74-99); Non-African American GFR(CKD) 28 (>60 ml/min/1.73 sqM); Potassium 3.5 mmol/L (3.5-5.1); Sodium 144 mmol/L (137-145); Total Protein 5.7 g/dL (6.3-8.2)
[2023-12-31 09:23] LABS: Anisocytosis Slight; HCT 26.9 % (39.0-53.0); HGB 8.4 gm/dL (13.0-17.5); Hypochromasia Moderate; MCHC 31.2 g/dL (31.0-37.0); MCV 99.6 fL (80.0-100.0); Macrocytosis Slight; Mean Platelet Volume 9.5; Platelet Count 382 k/uL (150-450); RDW 17.6 % (11.5-15.5); WBC 7.6 k/uL (3.8-10.6)
[2023-12-31 09:29] LABS: ALT 1055 U/L (4-49); AST 1125 U/L (17-59)
[2023-12-31] MEDS: MORPHINE SULFATE 2 MG/ML SYRINGE IVP PRN ×2 (10:47→13:44)
[2023-12-31 12:34] VITALS: BP 105/53; PULSE 75; TEMP 97.2
--- NOTE | 2023-12-31 13:49 | P.DS ---
Providers Date of admission: 12/27/23 17:10 Expected date of discharge: 12/31/23 Attending physician: Marco Antonio Conroy Consults: 12/27/23 18:01 Consult Physician Routine Consulting Provider: Tang Smith Consult Reason/Comments: Discuss goals of care Do you want consulting provider notified?: Yes Primary care physician: [facility] Course: 73-year-old male with a PMH of stage IV liver cancer currently on chemotherapy, hypertension, bipolar disorder who was brought in by EMS for altered mental status. Patient is a poor historian so unable to obtain history from the patient. Patient daughter was at bedside who is not the legal guardian. She states that patient did get chemotherapy about 1 month ago. She states that he saw his oncologist a few days ago and did get IV fluids which seemed to help. She states that her father has not been eating and drinking much. She also states that her father is taking oxycodone for pain control. She states that he walks with a shuffling gait without using a walker. She states that she was with him at his appointments at [facility] and she was told by the doctors that there is no cure for his cancer and that this is all palliative care. Patient was seen by oncology who started the patient on steroids with IV Solu- Medrol 125 mg daily. 12/30 Patient was seen and examined. Moaning and groaning. Lethargic. Currently on non rebreather. Oncology met with family and guardian today and decided on hospice. CODE status changed to DNR/DNI. Plans for GIP. General: lethargic, appears malnourished and chronically debilitated Derm: warm, dry Head: atraumatic, normocephalic, symmetric Eyes: EOMI, no lid lag, anicteric sclera Mouth: no lip lesion, mucus membranes moist Cardiovascular: S1S2 reg, no murmur Lungs: Crackles at the bases bilaterally, no accessory muscle use Psych: Somnolent and lethargic Discharge Diagnosis: Acute hypoxic respiratory failure due to Aspiration PNA Acute metabolic encephalopathy secondary to polypharmacy and acute kidney injury Acute kidney injury secondary to dehydration and hypovolemia Stage IV liver cancer and Hepatitis Transaminitis and hyperbilirubinemia secondary to liver cancer Bipolar disorder Immunotherapy induced hypothyroidism Hypertension This complex discharge took 45 minutes to coordinate. Patient Condition at Discharge: Poor Plan - Discharge Summary Discharge Rx Participant: Yes New Discharge Prescriptions: No Action traZODone HCL [Desyrel] 50 mg PO HS Multivitamins, Thera [Multivitamin (formulary)] 1 tab PO DAILY Divalproex ER [Depakote ER] 500 mg PO HS Triamterene-Hctz 37.5-25Mg [Maxzide 37.5-25] 1 tab PO DAILY Ondansetron [Zofran] 4 mg PO Q12HR PRN PRN Reason: Nausea Loperamide [Imodium] 2 mg PO Q6H PRN PRN Reason: Diarrhea Lidocaine 5% Patch [Lidoderm] 1 patch TRANSDERM DAILY Lidocaine 4% Cream [Lmx 4] 1 applic TOPICAL DAILY Atorvastatin [Lipitor] 10 mg PO HS Cholecalciferol [Vitamin D3 (25 Mcg = 1000 Iu)] 50 mcg PO DAILY Tamsulosin HCl [Flomax] 0.8 mg PO DAILY Omeprazole [PriLOSEC] 20 mg PO DAILY Gabapentin [Neurontin] 300 mg PO TID Naloxone HCl [Narcan] 4 mg NASAL DIRECTED PRN PRN Reason: Opioid Overdose hydrALAZINE HCL [Apresoline] 50 mg PO TID oxyCODONE HCL [OxyIR] 5 mg PO Q6H PRN PRN Reason: Pain Nicotine Polacrilex [Nicotine Gum] 4 mg BUCCAL QID PRN PRN Reason: Nicotine Cravings methocarbamoL 750 mg PO TID Loperamide [Imodium] 4 mg PO QAM PRN PRN Reason: Diarrhea ARIPiprazole [Abilify] 10 mg PO DAILY Levothyroxine Sodium 25 mcg PO DAILY Discharge Medication List Cholecalciferol [Vitamin D3 (25 Mcg = 1000 Iu)] 50 mcg PO DAILY 08/09/21 [History] Divalproex ER [Depakote ER] 500 mg PO HS 08/09/21 [History] Gabapentin [Neurontin] 300 mg PO TID 08/09/21 [History] Multivitamins, Thera [Multivitamin (formulary)] 1 tab PO DAILY 08/09/21 [History] Naloxone HCl [Narcan] 4 mg NASAL DIRECTED PRN 08/09/21 [History] Omeprazole [PriLOSEC] 20 mg PO DAILY 08/09/21 [History] Tamsulosin HCl [Flomax] 0.8 mg PO DAILY 08/09/21 [History] Triamterene-Hctz 37.5-25Mg [Maxzide 37.5-25] 1 tab PO DAILY 08/09/21 [History] hydrALAZINE HCL [Apresoline] 50 mg PO TID 08/09/21 [History] traZODone HCL [Desyrel] 50 mg PO HS 08/09/21 [History] ARIPiprazole [Abilify] 10 mg PO DAILY 12/27/23 [History] Atorvastatin [Lipitor] 10 mg PO HS 12/27/23 [History] Levothyroxine Sodium 25 mcg PO DAILY 12/27/23 [History] Lidocaine 4% Cream [Lmx 4] 1 applic TOPICAL DAILY 12/27/23 [History] Lidocaine 5% Patch [Lidoderm] 1 patch TRANSDERM DAILY 12/27/23 [History] Loperamide [Imodium] 2 mg PO Q6H PRN 12/27/23 [History] Loperamide [Imodium] 4 mg PO QAM PRN 12/27/23 [History] Nicotine Polacrilex [Nicotine Gum] 4 mg BUCCAL QID PRN 12/27/23 [History] Ondansetron [Zofran] 4 mg PO Q12HR PRN 12/27/23 [History] methocarbamoL 750 mg PO TID 12/27/23 [History] oxyCODONE HCL [OxyIR] 5 mg PO Q6H PRN 12/27/23 [History] Follow up Appointment(s)/Referral(s): [facility],Clinic [Primary Care Provider] - 1-2 days
== END 2023-12-31 13:46 | disposition hospice, inpatient (51) | DRG 91 ==
LOC: EC 13:19 → 5NMEDONC 17:10
PROVIDERS: ADMIT Student in an Organized Health Care Education/Training Program; ATTEND Student in an Organized Health Care Education/Training Program
DX: G92.8 Other toxic encephalopathy (principal); G93.41 Metabolic encephalopathy; J69.0 Pneumonitis due to inhalation of food and vomit; J96.01 Acute respiratory failure with hypoxia; C22.0 Liver cell carcinoma; C34.90 Malignant neoplasm of unspecified part of unspecified bronchus or lung; E46 Unspecified protein-calorie malnutrition; Z68.1 Body mass index [BMI] 19.9 or less, adult; N17.9 Acute kidney failure, unspecified; R18.0 Malignant ascites; I10 Essential (primary) hypertension; Z66 Do not resuscitate; K75.9 Inflammatory liver disease, unspecified; Z51.5 Encounter for palliative care; E03.2 Hypothyroidism due to medicaments and other exogenous substances; D64.9 Anemia, unspecified; K76.82 Hepatic encephalopathy; I95.9 Hypotension, unspecified; D75.839 Thrombocytosis, unspecified; F31.9 Bipolar disorder, unspecified; E80.6 Other disorders of bilirubin metabolism; T45.1X5A Adverse effect of antineoplastic and immunosuppressive drugs, initial encounter; R74.01 Elevation of levels of liver transaminase levels; E86.0 Dehydration; E86.1 Hypovolemia; F17.200 Nicotine dependence, unspecified, uncomplicated; T50.915A Adverse effect of multiple unspecified drugs, medicaments and biological substances, initial encounter; Z71.3 Dietary counseling and surveillance; Z79.891 Long term (current) use of opiate analgesic; Z79.899 Other long term (current) drug therapy; Z79.82 Long term (current) use of aspirin; Z79.890 Hormone replacement therapy
CPT/HCPCS: 36415; 70450; 71045; 80053; 80306; 80320; 81001; 82105; 82140; 82607; 82728; 82746; 83540; 83550; 83605; 83735; 83921; 84145; 84443; 84484; 85025; 85027; 85610; 85730; 93005; 96360; 96361; 99285

== ENCOUNTER 2023-12-31 12:49 | Inpatient (IN) | payer MEDICAID ==
[2023-12-31] MEDS ORDERED: ATROPINE OPHTH SOLN 1% 5ML BTL SUBLINGUAL PRN (13:15)
[2023-12-31] MEDS ORDERED: MORPHINE SULFATE 2 MG/ML SYRINGE IV PRN (13:15)
[2023-12-31] MEDS ORDERED: GLYCOPYRROLATE 0.2 MG/ML 2 ML VIAL IVP PRN (13:15)
[2023-12-31] MEDS: SCOPOLAMINE 1 MG/72 HR PATCH TRANSDERM SCH (15:18)
[2023-12-31] MEDS: MORPHINE SULFATE (100 MG/2 ML) 100 MG in SODIUM CHLORIDE 0.9% 100 ML IV SCH (15:18)
[2023-12-31] MEDS: LORazepam 2 MG/ML INJ IV PRN (15:29)
[2023-12-31 21:48] VITALS: RESP 15
--- NOTE | 2024-01-01 16:29 | P.HPIM ---
History of Present Illness H&P Date: 01/01/24 73-year-old male with a PMH of stage IV liver cancer currently on chemotherapy, hypertension, bipolar disorder who was brought in by EMS for altered mental status. Patient is a poor historian so unable to obtain history from the patient. Patient daughter was at bedside who is not the legal guardian. She states that patient did get chemotherapy about 1 month ago. She states that he saw his oncologist a few days ago and did get IV fluids which seemed to help. She states that her father has not been eating and drinking much. She also states that her father is taking oxycodone for pain control. She states that he walks with a shuffling gait without using a walker. She states that she was with him at his appointments at [facility] and she was told by the doctors that there is no cure for his cancer and that this is all palliative care. Patient was seen by oncology who started the patient on steroids with IV Solu- Medrol 125 mg daily. 12/30 Decision for GIP. 12/31 Patient was seen and examined. Appears comfortable. General: lethargic, appears malnourished and chronically debilitated Derm: warm, dry Head: atraumatic, normocephalic, symmetric Eyes: EOMI, no lid lag, anicteric sclera Mouth: no lip lesion, mucus membranes moist Cardiovascular: good distal perfusion in all 4 extremities Lungs: no accessory muscle use Psych: Somnolent and lethargic Acute hypoxic respiratory failure due to Aspiration PNA Acute metabolic encephalopathy secondary to polypharmacy and acute kidney injury Acute kidney injury secondary to dehydration and hypovolemia Stage IV liver cancer and Hepatitis Transaminitis and hyperbilirubinemia secondary to liver cancer Bipolar disorder Immunotherapy induced hypothyroidism Hypertension Continue Morphine drip at 1 mg/hr. Atropine Opth PRN for secretions. Robinul 0.1 mg IV Q6H PRN for secretions. Scopolamine path Q72H. Past Medical History Past Medical History: Hypertension Additional Past Medical History / Comment(s): Liver CA History of Any Multi-Drug Resistant Organisms: None Reported Past Surgical History: No Surgical Hx Reported Past Anesthesia/Blood Transfusion Reactions: No Reported Reaction Past Psychological History: Bipolar Smoking Status: Former smoker Past Alcohol Use History: None Reported Past Drug Use History: None Reported Medications and Allergies Home Medications Medication Instructions Recorded Confirmed Type Cholecalciferol [Vitamin D3 (25 50 mcg PO DAILY 08/09/21 12/31/23 History Mcg = 1000 Iu)] Divalproex ER [Depakote ER] 500 mg PO HS 08/09/21 12/31/23 History Gabapentin [Neurontin] 300 mg PO TID 08/09/21 12/31/23 History Multivitamins, Thera [Multivitamin 1 tab PO DAILY 08/09/21 12/31/23 History (formulary)] Naloxone HCl [Narcan] 4 mg NASAL DIRECTED PRN 08/09/21 12/31/23 History Omeprazole [PriLOSEC] 20 mg PO DAILY 08/09/21 12/31/23 History Tamsulosin HCl [Flomax] 0.8 mg PO DAILY 08/09/21 12/31/23 History Triamterene-Hctz 37.5-25Mg 1 tab PO DAILY 08/09/21 12/31/23 History [Maxzide 37.5-25] hydrALAZINE HCL [Apresoline] 50 mg PO TID 08/09/21 12/31/23 History traZODone HCL [Desyrel] 50 mg PO HS 08/09/21 12/31/23 History ARIPiprazole [Abilify] 10 mg PO DAILY 12/27/23 12/31/23 History Atorvastatin [Lipitor] 10 mg PO HS 12/27/23 12/31/23 History Levothyroxine Sodium 25 mcg PO DAILY 12/27/23 12/31/23 History Lidocaine 4% Cream [Lmx 4] 1 applic TOPICAL DAILY 12/27/23 12/31/23 History Lidocaine 5% Patch [Lidoderm] 1 patch TRANSDERM DAILY 12/27/23 12/31/23 History Loperamide [Imodium] 2 mg PO Q6H PRN 12/27/23 12/31/23 History Loperamide [Imodium] 4 mg PO QAM PRN 12/27/23 12/31/23 History Nicotine Polacrilex [Nicotine Gum] 4 mg BUCCAL QID PRN 12/27/23 12/31/23 History Ondansetron [Zofran] 4 mg PO Q12HR PRN 12/27/23 12/31/23 History methocarbamoL 750 mg PO TID 12/27/23 12/31/23 History oxyCODONE HCL [OxyIR] 5 mg PO Q6H PRN 12/27/23 12/31/23 History Allergies Allergy/AdvReac Type Severity Reaction Status Date / Time chocolate flavor Allergy Unknown Verified 12/27/23 18:39 bupropion [From Wellbutrin] AdvReac Seizure Verified 12/27/23 18:39 Physical Exam Vitals: Vital Signs Resp 01/01/24 08:00 15 12/31/23 19:40 15 Intake and Output 01/01/24 01/01/24 01/01/24 06:59 14:59 22:59 Intake Total 14.824 Output Total 400 Balance -385.176 Intake: Intake, IV Titration 14.824 Amount Morphine Sulfate (100 mg/ 14.824 2 ml) 100 mg In Sodium Chloride 0.9% 100 ml @ 1 MG/HR 1.02 mls/hr IV . Q24H [facility] Rx#:[id number] Output: Urine 400 Other: Voiding Method Diaper External Catheter
[2024-01-01 17:30] VITALS: BMI 19.3
--- NOTE | 2024-01-02 18:15 | P.DS ---
Providers Date of admission: 12/31/23 13:52 Expected date of discharge: 01/02/24 Attending physician: Foster Ferrara MD Primary care physician: [facility] Hospital Course: note: 73-year-old male with a PMH of stage IV liver cancer currently on chemotherapy, hypertension, bipolar disorder who was brought in by EMS for altered mental status. Patient is a poor historian so unable to obtain history from the patient. Patient daughter was at bedside who is not the legal guardian. She states that patient did get chemotherapy about 1 month ago. She states that he saw his oncologist a few days ago and did get IV fluids which seemed to help. She states that her father has not been eating and drinking much. She also states that her father is taking oxycodone for pain control. She states that he walks with a shuffling gait without using a walker. She states that she was with him at his appointments at [facility] and she was told by the doctors that there is no cure for his cancer and that this is all palliative care. Patient was seen by oncology who started the patient on steroids with IV Solu- Medrol 125 mg daily. 12/30 Decision for GIP. 12/31 Patient was seen and examined. Appears comfortable. Patient peacefully. He was not seen on 01/01. Discharge Diagnosis: Acute hypoxic respiratory failure due to Aspiration PNA Acute metabolic encephalopathy secondary to polypharmacy and acute kidney injury Acute kidney injury secondary to dehydration and hypovolemia Stage IV liver cancer and Hepatitis Transaminitis and hyperbilirubinemia secondary to liver cancer Bipolar disorder Immunotherapy induced hypothyroidism Hypertension Patient Condition at Discharge: Undetermined Plan - Discharge Summary New Discharge Prescriptions: No Action traZODone HCL [Desyrel] 50 mg PO HS Multivitamins, Thera [Multivitamin (formulary)] 1 tab PO DAILY Divalproex ER [Depakote ER] 500 mg PO HS Triamterene-Hctz 37.5-25Mg [Maxzide 37.5-25] 1 tab PO DAILY Ondansetron [Zofran] 4 mg PO Q12HR PRN PRN Reason: Nausea Loperamide [Imodium] 2 mg PO Q6H PRN PRN Reason: Diarrhea Lidocaine 5% Patch [Lidoderm] 1 patch TRANSDERM DAILY Lidocaine 4% Cream [Lmx 4] 1 applic TOPICAL DAILY Atorvastatin [Lipitor] 10 mg PO HS Cholecalciferol [Vitamin D3 (25 Mcg = 1000 Iu)] 50 mcg PO DAILY Tamsulosin HCl [Flomax] 0.8 mg PO DAILY Omeprazole [PriLOSEC] 20 mg PO DAILY Gabapentin [Neurontin] 300 mg PO TID Naloxone HCl [Narcan] 4 mg NASAL DIRECTED PRN PRN Reason: Opioid Overdose hydrALAZINE HCL [Apresoline] 50 mg PO TID oxyCODONE HCL [OxyIR] 5 mg PO Q6H PRN PRN Reason: Pain Nicotine Polacrilex [Nicotine Gum] 4 mg BUCCAL QID PRN PRN Reason: Nicotine Cravings methocarbamoL 750 mg PO TID Loperamide [Imodium] 4 mg PO QAM PRN PRN Reason: Diarrhea ARIPiprazole [Abilify] 10 mg PO DAILY Levothyroxine Sodium 25 mcg PO DAILY Discharge Medication List Cholecalciferol [Vitamin D3 (25 Mcg = 1000 Iu)] 50 mcg PO DAILY 08/09/21 [History] Divalproex ER [Depakote ER] 500 mg PO HS 08/09/21 [History] Gabapentin [Neurontin] 300 mg PO TID 08/09/21 [History] Multivitamins, Thera [Multivitamin (formulary)] 1 tab PO DAILY 08/09/21 [History] Naloxone HCl [Narcan] 4 mg NASAL DIRECTED PRN 08/09/21 [History] Omeprazole [PriLOSEC] 20 mg PO DAILY 08/09/21 [History] Tamsulosin HCl [Flomax] 0.8 mg PO DAILY 08/09/21 [History] Triamterene-Hctz 37.5-25Mg [Maxzide 37.5-25] 1 tab PO DAILY 08/09/21 [History] hydrALAZINE HCL [Apresoline] 50 mg PO TID 08/09/21 [History] traZODone HCL [Desyrel] 50 mg PO HS 08/09/21 [History] ARIPiprazole [Abilify] 10 mg PO DAILY 12/27/23 [History] Atorvastatin [Lipitor] 10 mg PO HS 12/27/23 [History] Levothyroxine Sodium 25 mcg PO DAILY 12/27/23 [History] Lidocaine 4% Cream [Lmx 4] 1 applic TOPICAL DAILY 12/27/23 [History] Lidocaine 5% Patch [Lidoderm] 1 patch TRANSDERM DAILY 12/27/23 [History] Loperamide [Imodium] 2 mg PO Q6H PRN 12/27/23 [History] Loperamide [Imodium] 4 mg PO QAM PRN 12/27/23 [History] Nicotine Polacrilex [Nicotine Gum] 4 mg BUCCAL QID PRN 12/27/23 [History] Ondansetron [Zofran] 4 mg PO Q12HR PRN 12/27/23 [History] methocarbamoL 750 mg PO TID 12/27/23 [History] oxyCODONE HCL [OxyIR] 5 mg PO Q6H PRN 12/27/23 [History] Discharge Disposition: - Preliminary Cause of Preliminary Cause of : Aspiration pneumonia
== END 2024-01-01 23:29 | disposition expired | DRG 951 ==
LOC: 5NMEDONC 13:52
PROVIDERS: ADMIT Family Medicine; ATTEND Family Medicine
DX: Z51.5 Encounter for palliative care (principal); J69.0 Pneumonitis due to inhalation of food and vomit; J96.01 Acute respiratory failure with hypoxia; G92.8 Other toxic encephalopathy; G93.41 Metabolic encephalopathy; C22.0 Liver cell carcinoma; N17.9 Acute kidney failure, unspecified; E03.2 Hypothyroidism due to medicaments and other exogenous substances; T45.1X5A Adverse effect of antineoplastic and immunosuppressive drugs, initial encounter; E86.0 Dehydration; E86.1 Hypovolemia; F31.9 Bipolar disorder, unspecified; I10 Essential (primary) hypertension; K75.9 Inflammatory liver disease, unspecified; T50.915A Adverse effect of multiple unspecified drugs, medicaments and biological substances, initial encounter; Z79.890 Hormone replacement therapy; Z79.899 Other long term (current) drug therapy; Z87.891 Personal history of nicotine dependence